=== PATIENT | female | born 1970 | race Two or more races ===

== ENCOUNTER 2018-06-18 16:15 | Inpatient (IN) | payer MEDICAID ==
[~2018-06-18] VITALS: Ht 157.5 cm; Wt 70.3 kg
[2018-06-18 16:30] VITALS: BP 126/66
[2018-06-18] MEDS ORDERED: Isovue-300 100ml vial INJ PRN (17:00)
[2018-06-18] MEDS ORDERED: Morphine Sulfate 4mg/ml Inj (IV USE ONLY) IVP ONE (17:00)
[2018-06-18 18:41] LABS: HEMATOCRIT 30.2 % (37.0-47.0); HEMOGLOBIN 9.5 G/DL (12.0-16.0); MEAN CORPUSCULAR VOLUME 95 FL (80-99); PLATELET COUNT 237 K/UL (150-450); RED BLOOD COUNT 3.19 M/UL (4.20-5.40); RED CELL DISTRIBUTION WIDTH 18.2 % (11.6-14.8)
[2018-06-18 18:42] LABS: WHITE BLOOD COUNT 22.7 K/UL (4.8-10.8)
[2018-06-18 19:00] LABS: ANION GAP 6 mmol/L (5-15); BLOOD UREA NITROGEN 34 mg/dL (7-18); CALCIUM 8.2 MG/DL (8.5-10.1); CARBON DIOXIDE 31 MMOL/L (21-32); CHLORIDE 95 MMOL/L (98-107); CREATININE 4.3 MG/DL (0.55-1.30); POTASSIUM 4.1 MMOL/L (3.5-5.1); SODIUM 132 MMOL/L (136-145)
[2018-06-18 19:04] LABS: ALANINE AMINOTRANSFERASE 12 U/L (12-78); ALBUMIN 1.9 G/DL (3.4-5.0); ALBUMIN/GLOBULIN RATIO 0.3 (1.0-2.7); ALKALINE PHOSPHATASE 104 U/L (46-116); ASPARTATE AMINO TRANSFERASE 15 U/L (15-37); BILIRUBIN,TOTAL 0.4 MG/DL (0.2-1.0)
[2018-06-18] MEDS ORDERED: Piperacillin/Tazobactam 3.375 GM in NS 110 ML IVPB ONE (21:15)
--- NOTE | 2018-06-18 21:56 | Emergency Room Report ---
History of Present Illness General Chief Complaint: Abdominal Pain Source: Patient Present Illness HPI 57-year-old female presents to ED for evaluation. Patient brought in by EMS. Complaining of abdominal pain for last 2 days. Also complaining of diarrhea. Pain is sharp, 10 out of 10, nonradiating. History of end-stage renal disease on dialysis. Gets dialysis Friday. Also has a G-tube. Denies fevers or chills. States his chest pain or shortness of breath. Daughter at bedside states that patient was discharged [address] [facility]. States that patient was not feeling well upon discharge. No other aggravating relieving factors. Denies any other associated symptoms Allergies: Coded Allergies: No Known Allergies (Unverified , 06/18/18) Patient History Past Medical History: renal disease, dialysis Past Surgical History: other - Gtube Pertinent Family History: none Social History: Denies: smoking, alcohol use, drug use Last Menstrual Period: na Now: No Immunizations: UTD Reviewed Nursing Documentation: PMH: Agreed; PSxH: Agreed Review of Systems All Other Systems: negative except mentioned in HPI Physical Exam Vital Signs Date Time Temp Pulse Resp B/P (MAP) Pulse Ox O2 Delivery O2 Flow Rate FiO2 06/18/18 16:11 98.2 82 18 126/66 98 Room Air Sp02 EP Interpretation: reviewed, normal General Appearance: no apparent distress, alert, GCS 15, non-toxic Head: normocephalic, atraumatic Eyes: bilateral eye normal inspection, bilateral eye PERRL ENT: hearing grossly normal, normal pharynx, no angioedema, normal voice Neck: full range of motion, supple/symm/no masses Respiratory: chest non-tender, lungs clear, normal breath sounds, speaking full sentences Cardiovascular #1: regular rate, rhythm, no edema Cardiovascular #2: 2+ carotid (R), 2+ carotid (L), 2+ radial (R), 2+ radial (L) , 2+ dorsalis pedis (R), 2+ dorsalis pedis (L) Gastrointestinal: normal bowel sounds, soft, non-distended, no guarding, no rebound, tenderness, other - Gtube Rectal: deferred Genitourinary: normal inspection, no CVA tenderness Musculoskeletal: back normal, gait/station normal, normal range of motion, non- tender Neurologic: alert, oriented x3, responsive, motor strength/tone normal, sensory intact, speech normal Psychiatric: judgement/insight normal, memory normal, mood/affect normal, no suicidal/homicidal ideation Reflexes: 3+ bicep (R), 3+ bicep (L), 3+ tricep (R), 3+ tricep (L), 3+ knee (R) , 3+ knee (L) Skin: normal color, no rash, warm/dry, well hydrated Lymphatic: no adenopathy Medical Decision Making Diagnostic Impression: Primary Impression: Colitis Additional Impression: ESRD needing dialysis ER Course Hospital Course 57 yo F presents to ED c/o abd pain, weakness, diarrhea Clinical course Differentialcolitis, gastroenteritis, dehydration She placed a stretcher. After initial history and physical I ordered labs, pain meds, CT Labs - marked leukocytosis noted, Hb/Hct stable. BUN/Cr elevated, K ok CT A/P - colitis Patient remains weak; recent hospitalization notes white cell count of 16,000. 22,000 here. Antibiotics given Case discussed with Dr. Canas and he agreed to accept the patient to his service for further care and support I feel this is a highly complex case requiring extensive working including EKG/ Rhythm strip, Xray/CT/US, Blood/urine lab work, repeat exams while in ED, and administration of strong opiates/narcotics for pain control, admission to hospital or close patient follow up. Diagnosis - colitis, ESRD need dialysis Patient admitted to hospital in serious condition Labs Test 06/18/18 18:05 White Blood Count 22.7 K/UL (4.8-10.8) Red Blood Count 3.19 M/UL (4.20-5.40) Hemoglobin 9.5 G/DL (12.0-16.0) Hematocrit 30.2 % (37.0-47.0) Mean Corpuscular Volume 95 FL (80-99) Mean Corpuscular Hemoglobin 29.7 PG (27.0-31.0) Mean Corpuscular Hemoglobin Concent 31.3 G/DL (32.0-36.0) Red Cell Distribution Width 18.2 % (11.6-14.8) Platelet Count 237 K/UL (150-450) Mean Platelet Volume 7.4 FL (6.5-10.1) Neutrophils (%) (Auto) % (45.0-75.0) Lymphocytes (%) (Auto) % (20.0-45.0) Monocytes (%) (Auto) % (1.0-10.0) Eosinophils (%) (Auto) % (0.0-3.0) Basophils (%) (Auto) % (0.0-2.0) Differential Total Cells Counted 100 Neutrophils % (Manual) 74 % (45-75) Lymphocytes % (Manual) 11 % (20-45) Monocytes % (Manual) 5 % (1-10) Eosinophils % (Manual) 2 % (0-3) Basophils % (Manual) 0 % (0-2) Band Neutrophils 8 % (0-8) Toxic Granulation 1+ Platelet Estimate Adequate Platelet Morphology Normal Polychromasia 1+ Anisocytosis 2+ Macrocytosis 1+ Sodium Level 132 MMOL/L (136-145) Potassium Level 4.1 MMOL/L (3.5-5.1) Chloride Level 95 MMOL/L (98-107) Carbon Dioxide Level 31 MMOL/L (21-32) Anion Gap 6 mmol/L (5-15) Blood Urea Nitrogen 34 mg/dL (7-18) Creatinine 4.3 MG/DL (0.55-1.30) Estimat Glomerular Filtration Rate 10.5 mL/min (>60) Glucose Level 110 MG/DL (74-106) Calcium Level 8.2 MG/DL (8.5-10.1) Total Bilirubin 0.4 MG/DL (0.2-1.0) Aspartate Amino Transf (AST/SGOT) 15 U/L (15-37) Alanine Aminotransferase (ALT/SGPT) 12 U/L (12-78) Alkaline Phosphatase 104 U/L (46-116) Total Protein 8.4 G/DL (6.4-8.2) Albumin 1.9 G/DL (3.4-5.0) Globulin 6.5 g/dL Albumin/Globulin Ratio 0.3 (1.0-2.7) Lipase 198 U/L (73-393) CT/MRI/US Diagnostic Results CT/MRI/US Diagnostic Results : Imaging Test Ordered: CT A/P Impression Diffuse colonic thickening is compatible with nonspecific colitis. Trace ascites. No free air or loculated fluid collection. Prominent appendix measuring 8 mm. No significant periappendiceal inflammatory change. Indeterminate 5.5 cm left pelvic mass is favored to be adnexal. Pelvic ultrasound may be considered for further characterization, as clinically indicated. Atherosclerosis of the abdominal aorta. No abdominal aortic aneurysm. Subcentimeter focus of hypoattenuation in the right kidney is too small to characterize. Percutaneous gastrostomy tube. Trace right pleural effusion. Bilateral atelectasis. Last Vital Signs Date Time Temp Pulse Resp B/P (MAP) Pulse Ox O2 Delivery O2 Flow Rate FiO2 06/18/18 16:30 98.2 82 18 126/66 98 Room Air Status: improved Disposition: ADMITTED INPATIENT Condition: Serious Referrals: NOT CHOSEN IPA/,REFERRING (PCP) Julio Locke MD Jun 18, 2018 21:56
[2018-06-18] MEDS ORDERED: Miralax 17gm pkt ORAL PRN (22:00)
[2018-06-18] MEDS ORDERED: Albuterol/Ipratropium 3ml neb HHN PRN (22:00)
[2018-06-18] MEDS ORDERED: NORVASC10 MG ORAL (22:24)
[2018-06-18] MEDS ORDERED: FAMOTIDINE20 MG ORAL (22:24)
[2018-06-18] MEDS ORDERED: COREG12.5 MG ORAL (22:24)
[2018-06-18] MEDS ORDERED: MULTIVITAMINS1 EAC8 ORAL (22:27)
[2018-06-18] MEDS ORDERED: VITAMIN D1000 UNI1 ORAL (22:27)
[2018-06-18] MEDS ORDERED: B COMPLEX WITH1 EACH ORAL (22:27)
[2018-06-18 22:30] VITALS: BP 113/58
[2018-06-19 04:00] VITALS: BP 121/62
[2018-06-19 07:28] LABS: BASOPHILS % (AUTO) 0.4 % (0.0-2.0); EOSINOPHILS % (AUTO) 2.4 % (0.0-3.0); HEMATOCRIT 31.7 % (37.0-47.0); HEMOGLOBIN 9.8 G/DL (12.0-16.0); MEAN CORPUSCULAR VOLUME 94 FL (80-99); MONOCYTES % (AUTO) 5.8 % (1.0-10.0); NEUTROPHILS % (AUTO) 75.4 % (45.0-75.0); PLATELET COUNT 265 K/UL (150-450); RED BLOOD COUNT 3.37 M/UL (4.20-5.40); WHITE BLOOD COUNT 16.3 K/UL (4.8-10.8)
[2018-06-19 07:42] LABS: ALBUMIN 1.9 G/DL (3.4-5.0); ANION GAP 6 mmol/L (5-15); BLOOD UREA NITROGEN 40 mg/dL (7-18); CALCIUM 8.4 MG/DL (8.5-10.1); CARBON DIOXIDE 31 MMOL/L (21-32); CHLORIDE 93 MMOL/L (98-107); CREATININE 4.8 MG/DL (0.55-1.30); POTASSIUM 4.3 MMOL/L (3.5-5.1); SODIUM 130 MMOL/L (136-145)
[2018-06-19 08:00] VITALS: BP 116/70
[2018-06-19] MEDS: Heparin 5000 units/ml inj SUBQ SCH ×2 (09:03→20:43)
--- NOTE | 2018-06-19 11:30 | Consultation ---
Consult Note Consult Note asked to eval for dialysis management 57-year-old female presents to ED for evaluation. Patient brought in by EMS. Complaining of abdominal pain for last 2 days. Also complaining of diarrhea. Pain is sharp, 10 out of 10, nonradiating. History of end-stage renal disease on dialysis. Gets dialysis Friday. Also has a G-tube. Denies fevers or chills. States his chest pain or shortness of breath. Daughter at bedside states that patient was discharged 2 days ago from [facility]. States that patient was not feeling well upon discharge. No other aggravating relieving factors. 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 Anemia Leukocytosis ? Cath infection Plan: NPO IV fluid ST eval UA and c/s HD as needed One gram Anish Chaudhary MD Jun 19, 2018 11:30
[2018-06-19 11:47] LABS: PHOSPHORUS 3.1 MG/DL (2.5-4.9)
[2018-06-19 12:00] VITALS: BP 111/63
[2018-06-19] MEDS ORDERED: Vancomycin 1 GM in D5W 275 ML IVPB SCH (12:00)
[2018-06-19] MEDS: D5NS 1,000 ML IV SCH (12:15)
--- NOTE | 2018-06-19 14:29 | Consultation ---
History of Present Illness General Date patient seen: Jun 19, 2018 Chief Complaint: Abdominal Pain Present Illness HPI 57-year-old female with ESRF on HD MWF, with Gtube feeding presented to ED for evaluation of abdominal pain for last 2 days. Also complaining of diarrhea. Denies fevers or chills. States his chest pain or shortness of breath. Daughter at bedside states that patient was discharged 2 days ago from [facility]. She was found to be septic and admitted for further work up. Allergies: Coded Allergies: No Known Allergies (Unverified , 06/18/18) Medication History Scheduled Amlodipine Besylate (Norvasc), 10 MG ORAL DAILY, (Reported) Carvedilol (Coreg), 12.5 MG ORAL EVERY 12 HOURS, (Reported) Cholecalciferol (Vitamin D3)* (Vitamin D*), 2,000 UNITS ORAL DAILY, (Reported) Famotidine (Famotidine), 20 MG ORAL TWICE A DAY, (Reported) Multivitamin With Minerals (Multivitamins With Minerals*), 1 TAB ORAL DAILY, ( Reported) Vitamin B Complex & Vit C No.3 (B Complex With Vitamin C), 1 TAB ORAL DAILY, ( Reported) Patient History Healthcare decision maker Resuscitation status Full Code Advanced Directive on File Past Medical/Surgical History Past Medical/Surgical History: (1) ESRD needing dialysis Review of Systems All Other Systems: negative except mentioned in HPI Physical Exam General Appearance: WD/WN Lines, tubes and drains: peripheral HEENT: normocephalic, atraumatic Neck: non-tender, normal alignment, limited range of motion Respiratory/Chest: chest wall non-tender, lungs clear Breasts: no masses Cardiovascular/Chest: normal peripheral pulses Abdomen: normal bowel sounds, non tender Last 24 Hour Vital Signs Date Time Temp Pulse Resp B/P (MAP) Pulse Ox O2 Delivery O2 Flow Rate FiO2 06/19/18 12:00 97.9 61 17 111/63 (79) 98 06/19/18 09:33 Room Air 06/19/18 09:29 97.8 06/19/18 08:16 Room Air 06/19/18 08:00 98.0 72 18 116/70 (85) 98 06/19/18 04:00 97.8 77 18 121/62 (81) 97 06/18/18 22:30 97.9 74 18 113/58 (76) 96 06/18/18 22:11 98.2 18 126/66 98 Room Air 06/18/18 16:30 98.2 82 18 126/66 98 Room Air 06/18/18 16:30 82 18 Room Air 06/18/18 16:11 98.2 82 18 126/66 98 Room Air Intake and Output 06/18/18 06/19/18 18:59 06:59 Intake Total 0 ml 240 ml Balance 0 ml 240 ml Intake Oral 0 ml 240 ml # Voids 2 # Bowel Movements 1 Laboratory Tests Test 06/18/18 18:05 06/18/18 22:48 06/19/18 06:50 06/19/18 06:58 White Blood Count 22.7 K/UL (4.8-10.8) *H 16.3 K/UL (4.8-10.8) H Red Blood Count 3.19 M/UL (4.20-5.40) L 3.37 M/UL (4.20-5.40) L Hemoglobin 9.5 G/DL (12.0-16.0) L 9.8 G/DL (12.0-16.0) L Hematocrit 30.2 % (37.0-47.0) L 31.7 % (37.0-47.0) L Mean Corpuscular Volume 95 FL (80-99) 94 FL (80-99) Mean Corpuscular Hemoglobin 29.7 PG (27.0-31.0) 29.0 PG (27.0-31.0) Mean Corpuscular Hemoglobin Concent 31.3 G/DL (32.0-36.0) L 30.8 G/DL (32.0-36.0) L Red Cell Distribution Width 18.2 % (11.6-14.8) H 19.0 % (11.6-14.8) H Platelet Count 237 K/UL (150-450) 265 K/UL (150-450) Mean Platelet Volume 7.4 FL (6.5-10.1) 7.7 FL (6.5-10.1) Neutrophils (%) (Auto) % (45.0-75.0) 75.4 % (45.0-75.0) H Lymphocytes (%) (Auto) % (20.0-45.0) 16.0 % (20.0-45.0) L Monocytes (%) (Auto) % (1.0-10.0) 5.8 % (1.0-10.0) Eosinophils (%) (Auto) % (0.0-3.0) 2.4 % (0.0-3.0) Basophils (%) (Auto) % (0.0-2.0) 0.4 % (0.0-2.0) Differential Total Cells Counted 100 Neutrophils % (Manual) 74 % (45-75) Lymphocytes % (Manual) 11 % (20-45) L Monocytes % (Manual) 5 % (1-10) Eosinophils % (Manual) 2 % (0-3) Basophils % (Manual) 0 % (0-2) Band Neutrophils 8 % (0-8) Toxic Granulation 1+ Platelet Estimate Adequate Platelet Morphology Normal Polychromasia 1+ Anisocytosis 2+ Macrocytosis 1+ Sodium Level 132 MMOL/L (136-145) L 130 MMOL/L (136-145) L Potassium Level 4.1 MMOL/L (3.5-5.1) 4.3 MMOL/L (3.5-5.1) Chloride Level 95 MMOL/L (98-107) L 93 MMOL/L (98-107) L Carbon Dioxide Level 31 MMOL/L (21-32) 31 MMOL/L (21-32) Anion Gap 6 mmol/L (5-15) 6 mmol/L (5-15) Blood Urea Nitrogen 34 mg/dL (7-18) H 40 mg/dL (7-18) H Creatinine 4.3 MG/DL (0.55-1.30) H 4.8 MG/DL (0.55-1.30) H Estimat Glomerular Filtration Rate 10.5 mL/min (>60) 9.3 mL/min (>60) Glucose Level 110 MG/DL (74-106) H 75 MG/DL (74-106) Calcium Level 8.2 MG/DL (8.5-10.1) L 8.4 MG/DL (8.5-10.1) L Total Bilirubin 0.4 MG/DL (0.2-1.0) Aspartate Amino Transf (AST/SGOT) 15 U/L (15-37) Alanine Aminotransferase (ALT/SGPT) 12 U/L (12-78) Alkaline Phosphatase 104 U/L (46-116) Total Protein 8.4 G/DL (6.4-8.2) H Albumin 1.9 G/DL (3.4-5.0) L 1.9 G/DL (3.4-5.0) L Globulin 6.5 g/dL Albumin/Globulin Ratio 0.3 (1.0-2.7) L Lipase 198 U/L (73-393) Troponin I 0.000 ng/mL (0.000-0.056) 0.000 ng/mL (0.000-0.056) Hemoglobin A1c 6.3 % (4.3-6.0) H Phosphorus Level 3.1 MG/DL (2.5-4.9) 3.0 MG/DL (2.5-4.9) Magnesium Level 2.0 MG/DL (1.8-2.4) Thyroid Stimulating Hormone (TSH) 2.039 uiU/mL (0.358-3.740) Test 06/19/18 11:24 C-Reactive Protein, Quantitative 32.5 mg/dL (0.00-0.90) H Height (Feet): 5 Height (Inches): 2.00 Weight (Pounds): 155 Medications Current Medications Medications (Trade) Dose Ordered Sig/Victoriano Route PRN Reason Start Time Stop Time Status Last Admin Dose Admin Acetaminophen (Tylenol) 650 mg Q4H PRN ORAL Fever 06/18/18 22:00 07/18/18 21:59 06/19/18 08:59 Albuterol/ Ipratropium (Albuterol/ Ipratropium) 3 ml EVERY 4 HOURS PRN HHN Shortness of Breath 06/18/18 22:00 06/23/18 21:59 Dextrose (Dextrose 50%) 25 ml Q30M PRN IV Hypoglycemia 06/18/18 22:00 07/18/18 21:59 Dextrose (Dextrose 50%) 50 ml Q30M PRN IV Hypoglycemia 06/18/18 22:00 07/18/18 21:59 Dextrose/Sodium Chloride 1,000 ml @ 50 mls/hr Q20H IV 06/19/18 11:30 07/19/18 11:29 06/19/18 12:15 Heparin Sodium (Porcine) (Heparin 5000 units/ml) 5,000 units EVERY 12 HOURS SUBQ 06/19/18 09:00 07/19/18 08:59 06/19/18 09:03 Ondansetron HCl (Zofran) 4 mg Q6H PRN IVP Nausea & Vomiting 06/18/18 22:00 07/18/18 21:59 Polyethylene Glycol (Miralax) 17 gm DAILYPRN PRN ORAL Constipation 06/18/18 22:00 07/18/18 21:59 Temazepam (Restoril) 15 mg HSPRN PRN ORAL Insomnia 06/18/18 22:00 06/25/18 21:59 Assessment/Plan Problem List: (1) Colitis ICD Codes: K52.9 - Noninfective gastroenteritis and colitis, unspecified; Z99.2 - Dependence on renal dialysis SNOMED: 06290944 (2) ESRD needing dialysis ICD Codes: N18.6 - End stage renal disease; Z99.2 - Dependence on renal dialysis SNOMED: 15234626 Assessment/Plan iv abx iv fluids npo nephrology for HD ID evaluation Anupama Tanner MD Jun 19, 2018 14:29
--- NOTE | 2018-06-19 15:31 | Diagnostic Imaging Report ---
Clinical Indication: Abdominal pain with vomiting Technique: No oral contrast utilized, per emergency room physician request IV administration nonionic contrast. Venous phase spiral acquisition obtained through the abdomen and pelvis. Multiplanar reconstructions were generated. Total dose length product 670.42 mGycm. CTDIvol(s) 14.12 mGy. Dose reduction achieved using automated exposure control Comparison: none Findings: There is marked wall thickening of essentially the entire colon, most strikingly involving the ascending colon. There is infiltration of the surrounding pericolonic fat. There is mild distention of the terminal ileum but no definite terminal ileal wall thickening. The appendix is mildly dilated, demonstrates internal fluid and rim enhancement. No small bowel distention. No free or loculated intraperitoneal gas or fluid is evident. There is a gastrostomy tube in the gastric lumen, in good position. The gastric wall demonstrates equivocal wall thickening, probably an artifact of under distention. There is some infiltration of the perigastric fat, however. There is a small amount of free intraperitoneal fluid present. The liver, gallbladder, bile ducts, pancreas, spleen, adrenals are unremarkable. The right kidney demonstrates an upper pole cyst as well as multiple subcentimeter low-attenuation lesions which are too small to characterize. Left kidney also demonstrates a subcentimeter low attenuation lesion coming off of the lower pole. No renal or ureteral calculi or hydronephrosis. There is a solid 5 cm left adnexal mass demonstrated.. There is a small right pleural effusion. Some atelectatic changes and possible congestion are noted at the lung bases. The heart is enlarged. What may be the tip of a central venous catheter is seen in the right atrium. The bones demonstrate degenerative spondylosis changes. Impression: Extensive diffuse colonic wall thickening and infiltration of the pericolonic fat is consistent with colitis, nonspecific as regards etiology Trace ascites fluid, possibly related to the above Dilatation of the appendix, probably related to the above, but the possibility of appendicitis should also be considered. Solid 5 cm left adnexal mass. Recommend ultrasound for further evaluation Gastrostomy Right pleural effusion Bilateral basilar pulmonary atelectatic changes and possible consolidation Right renal cysts. Bilateral subcentimeter low-attenuation renal lesions, too small to characterize, most likely benign simple cysts. Cardiomegaly Possible central venous catheter This agrees with the preliminary interpretation provided overnight by [facility] teleradiology service. The CT scanner at [facility] is accredited by the [employer] and the scans are performed using protocols designed to limit radiation exposure to as low as reasonably achievable to attain images of sufficient resolution adequate for diagnostic evaluation.
[2018-06-19] MEDS: Piperacillin/Tazobactam 2.25 GM in D5W 55 ML IVPB SCH ×2 (15:57→22:44)
--- NOTE | 2018-06-19 15:59 | Consultation ---
History of Present Illness General Date patient seen: Jun 19, 2018 Chief Complaint: Abdominal Pain Present Illness HPI 57 y/o F with hx of ESRF on HD MWF via R chest permacath, dysphagia s/p GT presented to ED on 06/18 with 2 days of abd pain and diarrhea. Pain is described as sharp, 10/10 intensity, non radiating. She was found to have leukocytosis Denied f/c, CP, SOB upon admission. Of note, patient was discharged from [facility] 2 days prior to admission. Allergies: Coded Allergies: No Known Allergies (Unverified , 06/18/18) Medication History Scheduled Amlodipine Besylate (Norvasc), 10 MG ORAL DAILY, (Reported) Carvedilol (Coreg), 12.5 MG ORAL EVERY 12 HOURS, (Reported) Cholecalciferol (Vitamin D3)* (Vitamin D*), 2,000 UNITS ORAL DAILY, (Reported) Famotidine (Famotidine), 20 MG ORAL TWICE A DAY, (Reported) Multivitamin With Minerals (Multivitamins With Minerals*), 1 TAB ORAL DAILY, ( Reported) Vitamin B Complex & Vit C No.3 (B Complex With Vitamin C), 1 TAB ORAL DAILY, ( Reported) Patient History Healthcare decision maker Resuscitation status Full Code Advanced Directive on File Patient History Narrative Pmhx: as above Shx: Denies: smoking, alcohol use, drug use Fhx non contributory Review of Systems All Other Systems: negative except mentioned in HPI Physical Exam Physical Exam Narrative ER ROS - General Review of Systems General Appearance: WD/WN Lines, tubes and drains: peripheral HEENT: normocephalic, atraumatic Neck: non-tender, normal alignment, limited range of motion Respiratory/Chest: chest wall non-tender, lungs clear Breasts: no masses Cardiovascular/Chest: normal peripheral pulses Abdomen: normal bowel sounds, non tender Last 24 Hour Vital Signs Date Time Temp Pulse Resp B/P (MAP) Pulse Ox O2 Delivery O2 Flow Rate FiO2 06/19/18 12:00 97.9 61 17 111/63 (79) 98 06/19/18 09:33 Room Air 06/19/18 09:29 97.8 06/19/18 08:16 Room Air 06/19/18 08:00 98.0 72 18 116/70 (85) 98 3/22/19 04:00 97.8 77 18 121/62 (81) 97 06/18/18 22:30 97.9 74 18 113/58 (76) 96 06/18/18 22:11 98.2 18 126/66 98 Room Air 06/18/18 16:30 98.2 82 18 126/66 98 Room Air 06/18/18 16:30 82 18 Room Air 06/18/18 16:11 98.2 82 18 126/66 98 Room Air Intake and Output 06/18/18 06/19/18 19:00 07:00 Intake Total 0 ml 240 ml Balance 0 ml 240 ml Intake Oral 0 ml 240 ml # Voids 2 # Bowel Movements 1 Laboratory Tests Test 06/18/18 18:05 06/18/18 22:48 06/19/18 06:50 06/19/18 06:58 White Blood Count 22.7 K/UL (4.8-10.8) *H 16.3 K/UL (4.8-10.8) H Red Blood Count 3.19 M/UL (4.20-5.40) L 3.37 M/UL (4.20-5.40) L Hemoglobin 9.5 G/DL (12.0-16.0) L 9.8 G/DL (12.0-16.0) L Hematocrit 30.2 % (37.0-47.0) L 31.7 % (37.0-47.0) L Mean Corpuscular Volume 95 FL (80-99) 94 FL (80-99) Mean Corpuscular Hemoglobin 29.7 PG (27.0-31.0) 29.0 PG (27.0-31.0) Mean Corpuscular Hemoglobin Concent 31.3 G/DL (32.0-36.0) L 30.8 G/DL (32.0-36.0) L Red Cell Distribution Width 18.2 % (11.6-14.8) H 19.0 % (11.6-14.8) H Platelet Count 237 K/UL (150-450) 265 K/UL (150-450) Mean Platelet Volume 7.4 FL (6.5-10.1) 7.7 FL (6.5-10.1) Neutrophils (%) (Auto) % (45.0-75.0) 75.4 % (45.0-75.0) H Lymphocytes (%) (Auto) % (20.0-45.0) 16.0 % (20.0-45.0) L Monocytes (%) (Auto) % (1.0-10.0) 5.8 % (1.0-10.0) Eosinophils (%) (Auto) % (0.0-3.0) 2.4 % (0.0-3.0) Basophils (%) (Auto) % (0.0-2.0) 0.4 % (0.0-2.0) Differential Total Cells Counted 100 Neutrophils % (Manual) 74 % (45-75) Lymphocytes % (Manual) 11 % (20-45) L Monocytes % (Manual) 5 % (1-10) Eosinophils % (Manual) 2 % (0-3) Basophils % (Manual) 0 % (0-2) Band Neutrophils 8 % (0-8) Toxic Granulation 1+ Platelet Estimate Adequate Platelet Morphology Normal Polychromasia 1+ Anisocytosis 2+ Macrocytosis 1+ Sodium Level 132 MMOL/L (136-145) L 130 MMOL/L (136-145) L Potassium Level 4.1 MMOL/L (3.5-5.1) 4.3 MMOL/L (3.5-5.1) Chloride Level 95 MMOL/L (98-107) L 93 MMOL/L (98-107) L Carbon Dioxide Level 31 MMOL/L (21-32) 31 MMOL/L (21-32) Anion Gap 6 mmol/L (5-15) 6 mmol/L (5-15) Blood Urea Nitrogen 34 mg/dL (7-18) H 40 mg/dL (7-18) H Creatinine 4.3 MG/DL (0.55-1.30) H 4.8 MG/DL (0.55-1.30) H Estimat Glomerular Filtration Rate 10.5 mL/min (>60) 9.3 mL/min (>60) Glucose Level 110 MG/DL (74-106) H 75 MG/DL (74-106) Calcium Level 8.2 MG/DL (8.5-10.1) L 8.4 MG/DL (8.5-10.1) L Total Bilirubin 0.4 MG/DL (0.2-1.0) Aspartate Amino Transf (AST/SGOT) 15 U/L (15-37) Alanine Aminotransferase (ALT/SGPT) 12 U/L (12-78) Alkaline Phosphatase 104 U/L (46-116) Total Protein 8.4 G/DL (6.4-8.2) H Albumin 1.9 G/DL (3.4-5.0) L 1.9 G/DL (3.4-5.0) L Globulin 6.5 g/dL Albumin/Globulin Ratio 0.3 (1.0-2.7) L Lipase 198 U/L (73-393) Troponin I 0.000 ng/mL (0.000-0.056) 0.000 ng/mL (0.000-0.056) Hemoglobin A1c 6.3 % (4.3-6.0) H Phosphorus Level 3.1 MG/DL (2.5-4.9) 3.0 MG/DL (2.5-4.9) Magnesium Level 2.0 MG/DL (1.8-2.4) Thyroid Stimulating Hormone (TSH) 2.039 uiU/mL (0.358-3.740) Test 06/19/18 11:24 C-Reactive Protein, Quantitative 32.5 mg/dL (0.00-0.90) H Height (Feet): 5 Height (Inches): 2.00 Weight (Pounds): 155 Medications Current Medications Medications (Trade) Dose Ordered Sig/Victoriano Route PRN Reason Start Time Stop Time Status Last Admin Dose Admin Acetaminophen (Tylenol) 650 mg Q4H PRN ORAL Fever 06/18/18 22:00 07/18/18 21:59 06/19/18 08:59 Albuterol/ Ipratropium (Albuterol/ Ipratropium) 3 ml EVERY 4 HOURS PRN HHN Shortness of Breath 06/18/18 22:00 06/23/18 21:59 Dextrose (Dextrose 50%) 25 ml Q30M PRN IV Hypoglycemia 06/18/18 22:00 07/18/18 21:59 Dextrose (Dextrose 50%) 50 ml Q30M PRN IV Hypoglycemia 06/18/18 22:00 07/18/18 21:59 Dextrose/Sodium Chloride 1,000 ml @ 50 mls/hr Q20H IV 06/19/18 11:30 07/19/18 11:29 06/19/18 12:15 Heparin Sodium (Porcine) (Heparin 5000 units/ml) 5,000 units EVERY 12 HOURS SUBQ 06/19/18 09:00 07/19/18 08:59 06/19/18 09:03 Ondansetron HCl (Zofran) 4 mg Q6H PRN IVP Nausea & Vomiting 06/18/18 22:00 07/18/18 21:59 Piperacillin Sod/ Tazobactam Sod 2.25 gm/Dextrose 55 ml @ 110 mls/hr Q8HR IVPB 06/19/18 15:00 06/24/18 14:59 Polyethylene Glycol (Miralax) 17 gm DAILYPRN PRN ORAL Constipation 06/18/18 22:00 07/18/18 21:59 Temazepam (Restoril) 15 mg HSPRN PRN ORAL Insomnia 06/18/18 22:00 06/25/18 21:59 Assessment/Plan Assessment/Plan Abx: IV Vancomycin 06/19 Zosyn 06/18- Assessment: Colitis- r/o Cdiff given recent hospital admission -CT abd/p: Extensive diffuse colonic wall thickening and infiltration of the pericolonic fat is consistent with colitis, nonspecific as regards etiology. Trace ascites fluid, possibly related to the above. Dilatation of the appendix, probably related to the above, but the possibility of appendicitis should also be considered. Solid 5 cm left adnexal mass. Recommend ultrasound for further evaluation. Right pleural effusion. Bilateral basilar pulmonary atelectatic changes and possible consolidation Afebrile Leukocytosis, improving ESRF on HD MWF via R chest permacath dysphagia s/p GT Plan: -Continue empiric Zosyn #2 for now -Start empiric PO Vancomycin pending cdiff -if Cdiff +, d/c Zosyn -f.u cx -Monitor CBC/CMP, temperatures -f/u cdiff, stool cx -GI f/u -aspiration precautions -HD cath care Thank you for this consultation. Will continue to follow along with you. Мария Dougherty M.D. Jun 19, 2018 15:59
[2018-06-19 16:00] VITALS: BP 112/75
--- NOTE | 2018-06-19 16:10 | History & Physical ---
History and Physical History & Physicial Benji Canas MD Jun 19, 2018 16:10
[2018-06-19 16:37] LABS: APPEARANCE,URINE SLIGHTLY CLOUDY; BILIRUBIN, URINE 2+ (NEGATIVE); COLOR,URINE AMBER; GLUCOSE, URINE (UA) NEGATIVE (NEGATIVE); KETONES,URINE NEGATIVE (NEGATIVE); LEUKOCYTE ESTERASE ,URINE 2+ (NEGATIVE); NITRITE,URINE NEGATIVE (NEGATIVE); PH,URINE 5 (4.5-8.0); PROTEIN,URINE 3+ (NEGATIVE); UROBILINOGEN,URINE NORMAL MG/DL (0.0-1.0)
[2018-06-19] MEDS: Vancomycin oral 125mg/2.5ml ORAL SCH ×2 (17:30→20:42)
[2018-06-19 20:00] VITALS: BP 125/87
--- NOTE | 2018-06-19 21:45 | Consultation ---
DATE OF CONSULTATION: 06/19/2018 CONSULTING PHYSICIAN: Theron Casiano M.D. REFERRING PHYSICIAN: Benji Canas M.D. CHIEF COMPLAINT: Diarrhea, anemia, abdominal pain. HISTORY OF PRESENT ILLNESS: This is a 57-year-old female, who apparently recently was discharged from [facility]. Apparently, she had a long stay over there. She is not exactly sure what was the reason for staying, but basically she was admitted with 2 days of abdominal pain and diarrhea. CT in the ER, I do not have the final report of the CT scan, but according to the ER note states that the patient had evidence of colitis. PAST MEDICAL HISTORY: 1. End-stage renal disease, on hemodialysis. 2. History of dysphagia, requiring G-tube placement. 3. History of . ALLERGIES: No known drug allergies. MEDICATIONS: Please see medication reconciliation list. FAMILY HISTORY: Noncontributory. SOCIAL HISTORY: The patient denies any tobacco, alcohol, or illicit drug abuse. PAST SURGICAL HISTORY: The patient had a large many years ago. PHYSICAL EXAMINATION: VITAL SIGNS: Temperature 97.9, pulse 61, respirations 17, blood pressure is 101/63. HEENT: Normocephalic and atraumatic. No scleral icterus. NECK: Supple. No obvious evidence of lymphadenopathy. CARDIOVASCULAR: Regular rhythm. Plus S1 and S2. No obvious murmur. LUNGS: Clear to auscultation bilaterally. ABDOMEN: Positive bowel sounds. Soft. There is a scar below the umbilicus from prior . There is tenderness to palpation in the lower quadrant. No rebound. No guarding. No peritoneal sign. EXTREMITIES: No cyanosis, no clubbing, no edema. LABORATORY DATA: On admission, white count was 22. Hemoglobin 9.5, platelet count was 237,000. BUN is 40, creatinine 4.8. ASSESSMENT: This is a 57-year-old female with GI problem list of: 1. Anemia. 2. Abdominal pain. 3. History of dysphagia with a G-tube. 4. Diarrhea. PLAN: 1. In terms of the anemia, it is most probably secondary to chronic end-stage renal disease. We will order iron panel, stool for OB. Hold the GI procedure at this time. 2. In terms of dysphagia, the patient apparently has been eating. She states she does not need the G-tube. She has not used the G-tube. The G-tube apparently was placed 3 months ago as she was on TPN at that time according to her, so basically she wanted the G-tube removed. I offered to take it out today, but she states no, she wants to wait until tomorrow and talk to her daughter if really having it removed, so we are going to follow up on that. 3. In terms of diarrhea, given recent hospital stay and most probably recent antibiotics, we need to rule out C. difficile. We are going to order stool for culture, stool for C. difficile. Monitor labs. Consider colonoscopy if needed. I want to thank Dr. Benji Canas for this kind referral. Theron Casiano M.D. DR: Melvi JOB#: [id number] CC: Benji Canas M.D.; Fax#: [phone]
--- NOTE | 2018-06-19 22:30 | History and Physical Report ---
DATE OF ADMISSION: 06/18/2018 CHIEF COMPLAINT: Abdominal pain x2 days. HISTORY OF PRESENT ILLNESS: This is a 57-year-old female with past medical history significant for end-stage renal disease, on hemodialysis, Friday, Friday, and Friday via right chest wall PermCath; history of dysphagia, status post PEG placement; and hypertension who is presented to the hospital complaining about abdominal pain over the past two days, progressively worsening associated with diarrhea. The patient stated the pain is 10/10 intensity, nonradiating. No fever or chills. Occasional chest pain associated with shortness of breath. The patient was recently discharged about two days ago from [facility] and abdominal pain got worsening and so decided to come to the hospital. Shortly after initial evaluation in the emergency room, the patient confirmed to have extensive diffuse colonic wall thickening with infiltrate of the pericolonic fat, it is consistent with colitis on CT scan and subsequently the patient was admitted to the hospital with colitis. PAST MEDICAL HISTORY/PAST SURGICAL HISTORY: As above, history of end-stage renal disease, on hemodialysis; hypertension; dysphagia, status post PEG; and recent history of tracheostomy. MEDICATIONS: At home, please refer to medication reconciliation. ALLERGIES: No known drug allergies. SOCIAL HISTORY: No smoking, alcohol, or drugs. FAMILY HISTORY: Noncontributory. REVIEW OF SYSTEMS: Mostly as above. Very limited secondary to the patient's status. The patient is speaking and hard to communicate; however, denies any loss of consciousness. Denies any fever or chills. Denies any fall or head trauma. PHYSICAL EXAMINATION: VITAL SIGNS: On admission, temperature 98.2, pulse of 82, respirations 18, and blood pressure 126/66. GENERAL: The patient is awake, responsive, in no acute distress. HEAD AND NECK: Pupils equal and reactive to light. Extraocular movements are intact. NECK: Supple. No JVD. Tracheostomy site was noted. Well-healed scar. CHEST: Chest wall has right-sided PermCath. No sign of infection. LUNGS: Chest has bilateral air entry. No wheezes or rhonchi. HEART: S1 and S2. Regular rhythm. No gallops. ABDOMEN: Soft. Generalized tenderness. No rebound tenderness. No fluid shift. PEG site is clean. EXTREMITIES: No cyanosis, clubbing, or edema. NEUROLOGIC: Cranial nerves II through XII grossly intact. Motor is 5/5 in all extremities. Gait was not assessed due to the patient's status. LABORATORY AND DIAGNOSTIC DATA: On admission from the ER is significant for WBC of 22.7, hemoglobin of 9.5, hematocrit 30, and platelets are 237,000. Sodium 130, potassium 4.3, chloride 93, bicarbonate 31, BUN 40, creatinine 4.8, and calcium is 9.3. First and second troponin 0.00. CRP of 32.5. Albumin is 1.9. CT scan of the abdomen and pelvis as mentioned, marked colonic thickening, extensive diffuse colonic wall thickening with infiltration of the pericolonic fat, it is consistent with colitis, nonspecific etiology. Trace ascites, fluid, possible related to the above. Dilatation of the appendix, probably related to the above. A 5 cm left adnexal mass. Recommended ultrasound for further evaluation. Gastrostomy, right pleural effusion, and bilateral basal pulmonary atelectasis. ASSESSMENT: 1. Abdominal pain, most likely secondary to an acute colitis. 2. Pelvic mass. 3. End-stage renal disease, on hemodialysis. 4. Hypertension. 5. Dysphagia, status post PEG. PLAN: Admit the patient to medical floor. We will follow up with broad-spectrum antibiotic with vancomycin and Zosyn. Follow up with Dr. Berry from Nephrology, Dr. Tanner from Pulmonary Critical Care, and Dr. Dougherty from Infectious Disease. We will resume home medication. Code status is Full Code. DVT prophylaxis, heparin subcutaneous. Benji Canas M.D. DR: DERIK JOB#: [id number] CC:
[2018-06-20] VITALS (7 sets, daily range): BP systolic 98–131; BP diastolic 51–87
[2018-06-20] MEDS: Piperacillin/Tazobactam 2.25 GM in D5W 55 ML IVPB SCH ×3 (05:54→22:10)
[2018-06-20 06:37] LABS: BASOPHILS % (AUTO) 0.4 % (0.0-2.0); EOSINOPHILS % (AUTO) 2.5 % (0.0-3.0); HEMATOCRIT 28.9 % (37.0-47.0); HEMOGLOBIN 8.9 G/DL (12.0-16.0); LYMPHOCYTES % (AUTO) 18.2 % (20.0-45.0); MEAN CORPUSCULAR VOLUME 94 FL (80-99); MONOCYTES % (AUTO) 7.1 % (1.0-10.0); NEUTROPHILS % (AUTO) 71.8 % (45.0-75.0); PLATELET COUNT 270 K/UL (150-450); RED BLOOD COUNT 3.07 M/UL (4.20-5.40); RED CELL DISTRIBUTION WIDTH 18.8 % (11.6-14.8); WHITE BLOOD COUNT 16.2 K/UL (4.8-10.8)
[2018-06-20 07:15] LABS: ALANINE AMINOTRANSFERASE 9 U/L (12-78); ALBUMIN 1.6 G/DL (3.4-5.0); ALBUMIN/GLOBULIN RATIO 0.3 (1.0-2.7); ALKALINE PHOSPHATASE 100 U/L (46-116); ANION GAP 9 mmol/L (5-15); ASPARTATE AMINO TRANSFERASE 12 U/L (15-37); BILIRUBIN,TOTAL 0.4 MG/DL (0.2-1.0); BLOOD UREA NITROGEN 45 mg/dL (7-18); CALCIUM 7.9 MG/DL (8.5-10.1); CARBON DIOXIDE 27 MMOL/L (21-32); CHLORIDE 94 MMOL/L (98-107); CREATININE 5.4 MG/DL (0.55-1.30); FERRITIN 620 NG/ML (8-388); PHOSPHORUS 2.6 MG/DL (2.5-4.9); POTASSIUM 4.2 MMOL/L (3.5-5.1); SODIUM 130 MMOL/L (136-145)
[2018-06-20 07:52] LABS: % IRON SATURATION 19 % (15-50); IRON 17 ug/dL (50-175); TOTAL IRON BINDING CAPACITY 88 ug/dL (250-450)
[2018-06-20] MEDS: Vancomycin oral 125mg/2.5ml ORAL SCH ×3 (08:33→23:35)
[2018-06-20] MEDS: Heparin 5000 units/ml inj SUBQ SCH ×2 (08:34→20:46)
[2018-06-20] MEDS: D5NS 1,000 ML IV SCH (08:35)
--- NOTE | 2018-06-20 10:13 | Infectious Diseases Prog Note ---
Assessment/Plan Assessment/Plan Assessment: Colitis- probable Cdiff given recent hospital admission , despite of negative toxin test -CT abd/p: Extensive diffuse colonic wall thickening and infiltration of the pericolonic fat is consistent with colitis, nonspecific as regards etiology. Trace ascites fluid, possibly related to the above. Dilatation of the appendix, probably related to the above, but the possibility of appendicitis should also be considered. Solid 5 cm left adnexal mass. Recommend ultrasound for further evaluation. Right pleural effusion. Bilateral basilar pulmonary atelectatic changes and possible consolidation Afebrile Leukocytosis, ESRF on HD MWF via R chest permacath dysphagia s/p GT Plan: -Continue empiric Zosyn #3/5-7 for now may Dc if stool Cx negative - cont empiric PO Vancomycin d# 05/10 -f.u cx -Monitor CBC/CMP, temperatures -f/u stool cx -GI f/u -aspiration precautions -HD cath care Subjective Allergies: Coded Allergies: No Known Allergies (Unverified , 06/18/18) Subjective diarrhea improving Afebrile no new complain Objective Vital Signs Last 24 Hour Vital Signs Date Time Temp Pulse Resp B/P (MAP) Pulse Ox O2 Delivery O2 Flow Rate FiO2 06/20/18 09:00 Room Air 06/20/18 04:00 97.6 65 20 119/78 (92) 06/20/18 00:00 98.0 65 18 122/87 (99) 06/19/18 21:00 Room Air 06/19/18 20:00 97.8 75 18 125/87 (100) 06/19/18 16:00 98.5 90 17 112/75 (87) 98 06/19/18 12:00 97.9 61 17 111/63 (79) 98 Height (Feet): 5 Height (Inches): 2.00 Weight (Pounds): 155 HEENT: mucous membranes moist Respiratory/Chest: no respiratory distress Cardiovascular: no gallop/murmur Abdomen: no organomegaly Microbiology Date/Time Source Procedure Growth Status 06/18/18 22:10 Nasal Nares MRSA Culture - Final NO METHICILLIN RESISTANT STAPH AUREUS... Complete 06/20/18 00:40 Stool Clostridium difficile Toxin Assay - Final Complete 06/19/18 16:15 Indwelling Cath Urine Culture - Preliminary NO GROWTH Resulted Laboratory Tests Test 06/19/18 11:24 06/19/18 16:15 06/20/18 00:40 06/20/18 05:35 C-Reactive Protein, Quantitative 32.5 mg/dL (0.00-0.90) H 21.6 mg/dL (0.00-0.90) H Urine Color Eloisa Urine Appearance Slightly cloudy Urine pH 5 (4.5-8.0) Urine Specific [place] 1.005 (1.005-1.035) Urine Protein 3+ (NEGATIVE) H Urine Glucose (UA) Negative (NEGATIVE) Urine Ketones Negative (NEGATIVE) Urine Blood 2+ (NEGATIVE) H Urine Nitrite Negative (NEGATIVE) Urine Bilirubin 2+ (NEGATIVE) H Urine Ictotest Negative (NEGATIVE) Urine Urobilinogen Normal MG/DL (0.0-1.0) Urine Leukocyte Esterase 2+ (NEGATIVE) H Urine RBC 2-4 /HPF (0 - 2) H Urine WBC 10-15 /HPF (0 - 2) H Urine Squamous Epithelial Cells Moderate /LPF (NONE/OCC) H Urine Amorphous Sediment Many /LPF (NONE) H Urine Bacteria Moderate /HPF (NONE) H Stool Occult Blood Positive (NEGATIVE) White Blood Count 16.2 K/UL (4.8-10.8) H Red Blood Count 3.07 M/UL (4.20-5.40) L Hemoglobin 8.9 G/DL (12.0-16.0) L Hematocrit 28.9 % (37.0-47.0) L Mean Corpuscular Volume 94 FL (80-99) Mean Corpuscular Hemoglobin 29.1 PG (27.0-31.0) Mean Corpuscular Hemoglobin Concent 30.9 G/DL (32.0-36.0) L Red Cell Distribution Width 18.8 % (11.6-14.8) H Platelet Count 270 K/UL (150-450) Mean Platelet Volume 7.9 FL (6.5-10.1) Neutrophils (%) (Auto) 71.8 % (45.0-75.0) Lymphocytes (%) (Auto) 18.2 % (20.0-45.0) L Monocytes (%) (Auto) 7.1 % (1.0-10.0) Eosinophils (%) (Auto) 2.5 % (0.0-3.0) Basophils (%) (Auto) 0.4 % (0.0-2.0) Erythrocyte Sedimentation Rate 96 MM/HR (0-30) H Sodium Level 130 MMOL/L (136-145) L Potassium Level 4.2 MMOL/L (3.5-5.1) Chloride Level 94 MMOL/L (98-107) L Carbon Dioxide Level 27 MMOL/L (21-32) Anion Gap 9 mmol/L (5-15) Blood Urea Nitrogen 45 mg/dL (7-18) H Creatinine 5.4 MG/DL (0.55-1.30) H Estimat Glomerular Filtration Rate 8.1 mL/min (>60) Glucose Level 78 MG/DL (74-106) Calcium Level 7.9 MG/DL (8.5-10.1) L Phosphorus Level 2.6 MG/DL (2.5-4.9) Magnesium Level 1.7 MG/DL (1.8-2.4) L Iron Level 17 ug/dL (50-175) L Total Iron Binding Capacity 88 ug/dL (250-450) L Percent Iron Saturation 19 % (15-50) Unsaturated Iron Binding 71 ug/dL (112-346) L Ferritin 620 NG/ML (8-388) H Total Bilirubin 0.4 MG/DL (0.2-1.0) Aspartate Amino Transf (AST/SGOT) 12 U/L (15-37) L Alanine Aminotransferase (ALT/SGPT) 9 U/L (12-78) L Alkaline Phosphatase 100 U/L (46-116) Troponin I 0.017 ng/mL (0.000-0.056) Pro-B-Type Natriuretic Peptide 3793 pg/mL (0-125) H Total Protein 7.3 G/DL (6.4-8.2) Albumin 1.6 G/DL (3.4-5.0) L Globulin 5.7 g/dL Albumin/Globulin Ratio 0.3 (1.0-2.7) L Lipase 164 U/L (73-393) Vitamin B12 Level > 2000 PG/ML (193-986) H Folate 51.7 NG/ML (8.6-58.9) Current Medications Medications (Trade) Dose Ordered Sig/Victoriano Route PRN Reason Start Time Stop Time Status Last Admin Dose Admin Acetaminophen (Tylenol) 650 mg Q4H PRN ORAL Fever 06/18/18 22:00 07/18/18 21:59 06/20/18 08:33 Albuterol/ Ipratropium (Albuterol/ Ipratropium) 3 ml EVERY 4 HOURS PRN HHN Shortness of Breath 06/18/18 22:00 06/23/18 21:59 Dextrose (Dextrose 50%) 25 ml Q30M PRN IV Hypoglycemia 06/18/18 22:00 07/18/18 21:59 Dextrose (Dextrose 50%) 50 ml Q30M PRN IV Hypoglycemia 06/18/18 22:00 07/18/18 21:59 Dextrose/Sodium Chloride 1,000 ml @ 50 mls/hr Q20H IV 06/19/18 11:30 07/19/18 11:29 06/19/18 12:15 Heparin Sodium (Porcine) (Heparin 5000 units/ml) 5,000 units EVERY 12 HOURS SUBQ 06/19/18 09:00 07/19/18 08:59 06/20/18 08:34 Ondansetron HCl (Zofran) 4 mg Q6H PRN IVP Nausea & Vomiting 06/18/18 22:00 07/18/18 21:59 Piperacillin Sod/ Tazobactam Sod 2.25 gm/Dextrose 55 ml @ 110 mls/hr Q8HR IVPB 06/19/18 15:00 06/24/18 14:59 06/20/18 05:54 Polyethylene Glycol (Miralax) 17 gm DAILYPRN PRN ORAL Constipation 06/18/18 22:00 07/18/18 21:59 Temazepam (Restoril) 15 mg HSPRN PRN ORAL Insomnia 06/18/18 22:00 06/25/18 21:59 Vancomycin HCl (Firvanq) 125 mg FOUR TIMES A DAY ORAL 06/19/18 18:00 06/26/18 17:59 06/20/18 08:33 Cristian Montes MD Jun 20, 2018 10:13
--- NOTE | 2018-06-20 15:48 | Internal Med Progress Note ---
Subjective Date of Service: Jun 20, 2018 Physician Name Yunier Metcalf Attending Physician Benji Canas MD Current Medications Medications (Trade) Dose Ordered Sig/Victoriano Route PRN Reason Start Time Stop Time Status Last Admin Dose Admin Acetaminophen (Tylenol) 650 mg Q4H PRN ORAL Fever 06/18/18 22:00 07/18/18 21:59 06/20/18 08:33 Albuterol/ Ipratropium (Albuterol/ Ipratropium) 3 ml EVERY 4 HOURS PRN HHN Shortness of Breath 06/18/18 22:00 06/23/18 21:59 Dextrose (Dextrose 50%) 25 ml Q30M PRN IV Hypoglycemia 06/18/18 22:00 07/18/18 21:59 Dextrose (Dextrose 50%) 50 ml Q30M PRN IV Hypoglycemia 06/18/18 22:00 07/18/18 21:59 Dextrose/Sodium Chloride 1,000 ml @ 50 mls/hr Q20H IV 06/19/18 11:30 07/19/18 11:29 06/19/18 12:15 Heparin Sodium (Porcine) (Heparin 5000 units/ml) 5,000 units EVERY 12 HOURS SUBQ 06/19/18 09:00 07/19/18 08:59 06/20/18 08:34 Ondansetron HCl (Zofran) 4 mg Q6H PRN IVP Nausea & Vomiting 06/18/18 22:00 07/18/18 21:59 Piperacillin Sod/ Tazobactam Sod 2.25 gm/Dextrose 55 ml @ 110 mls/hr Q8HR IVPB 06/19/18 15:00 06/24/18 14:59 06/20/18 13:49 Polyethylene Glycol (Miralax) 17 gm DAILYPRN PRN ORAL Constipation 06/18/18 22:00 07/18/18 21:59 Temazepam (Restoril) 15 mg HSPRN PRN ORAL Insomnia 06/18/18 22:00 06/25/18 21:59 Vancomycin HCl (Firvanq) 125 mg FOUR TIMES A DAY ORAL 06/19/18 18:00 06/26/18 17:59 06/20/18 13:49 Allergies: Coded Allergies: No Known Allergies (Unverified , 06/18/18) ROS Limited/Unobtainable: No Constitutional: Reports: no symptoms HEENT: Reports: no symptoms Cardiovascular: Reports: no symptoms Respiratory: Reports: no symptoms Gastrointestinal/Abdominal: Reports: abdominal pain, diarrhea Genitourinary: Reports: no symptoms Neurologic/Psychiatric: Reports: no symptoms Subjective 57 YO F admitted with abdominal pain and diarrhea. Cover for Sandra Avina-Dr Canas. Objective Last Vital Signs Date Time Temp Pulse Resp B/P (MAP) Pulse Ox O2 Delivery O2 Flow Rate FiO2 06/20/18 12:00 98.1 72 16 119/53 (75) 97 06/20/18 09:00 Room Air Laboratory Tests Test 06/19/18 16:15 06/20/18 00:40 06/20/18 05:35 Urine Color Eloisa Urine Appearance Slightly cloudy Urine pH 5 (4.5-8.0) Urine Specific [place] 1.005 (1.005-1.035) Urine Protein 3+ (NEGATIVE) H Urine Glucose (UA) Negative (NEGATIVE) Urine Ketones Negative (NEGATIVE) Urine Blood 2+ (NEGATIVE) H Urine Nitrite Negative (NEGATIVE) Urine Bilirubin 2+ (NEGATIVE) H Urine Ictotest Negative (NEGATIVE) Urine Urobilinogen Normal MG/DL (0.0-1.0) Urine Leukocyte Esterase 2+ (NEGATIVE) H Urine RBC 2-4 /HPF (0 - 2) H Urine WBC 10-15 /HPF (0 - 2) H Urine Squamous Epithelial Cells Moderate /LPF (NONE/OCC) H Urine Amorphous Sediment Many /LPF (NONE) H Urine Bacteria Moderate /HPF (NONE) H Stool Occult Blood Positive (NEGATIVE) White Blood Count 16.2 K/UL (4.8-10.8) H Red Blood Count 3.07 M/UL (4.20-5.40) L Hemoglobin 8.9 G/DL (12.0-16.0) L Hematocrit 28.9 % (37.0-47.0) L Mean Corpuscular Volume 94 FL (80-99) Mean Corpuscular Hemoglobin 29.1 PG (27.0-31.0) Mean Corpuscular Hemoglobin Concent 30.9 G/DL (32.0-36.0) L Red Cell Distribution Width 18.8 % (11.6-14.8) H Platelet Count 270 K/UL (150-450) Mean Platelet Volume 7.9 FL (6.5-10.1) Neutrophils (%) (Auto) 71.8 % (45.0-75.0) Lymphocytes (%) (Auto) 18.2 % (20.0-45.0) L Monocytes (%) (Auto) 7.1 % (1.0-10.0) Eosinophils (%) (Auto) 2.5 % (0.0-3.0) Basophils (%) (Auto) 0.4 % (0.0-2.0) Erythrocyte Sedimentation Rate 96 MM/HR (0-30) H Sodium Level 130 MMOL/L (136-145) L Potassium Level 4.2 MMOL/L (3.5-5.1) Chloride Level 94 MMOL/L (98-107) L Carbon Dioxide Level 27 MMOL/L (21-32) Anion Gap 9 mmol/L (5-15) Blood Urea Nitrogen 45 mg/dL (7-18) H Creatinine 5.4 MG/DL (0.55-1.30) H Estimat Glomerular Filtration Rate 8.1 mL/min (>60) Glucose Level 78 MG/DL (74-106) Calcium Level 7.9 MG/DL (8.5-10.1) L Phosphorus Level 2.6 MG/DL (2.5-4.9) Magnesium Level 1.7 MG/DL (1.8-2.4) L Iron Level 17 ug/dL (50-175) L Total Iron Binding Capacity 88 ug/dL (250-450) L Percent Iron Saturation 19 % (15-50) Unsaturated Iron Binding 71 ug/dL (112-346) L Ferritin 620 NG/ML (8-388) H Total Bilirubin 0.4 MG/DL (0.2-1.0) Aspartate Amino Transf (AST/SGOT) 12 U/L (15-37) L Alanine Aminotransferase (ALT/SGPT) 9 U/L (12-78) L Alkaline Phosphatase 100 U/L (46-116) Troponin I 0.017 ng/mL (0.000-0.056) C-Reactive Protein, Quantitative 21.6 mg/dL (0.00-0.90) H Pro-B-Type Natriuretic Peptide 3793 pg/mL (0-125) H Total Protein 7.3 G/DL (6.4-8.2) Albumin 1.6 G/DL (3.4-5.0) L Globulin 5.7 g/dL Albumin/Globulin Ratio 0.3 (1.0-2.7) L Lipase 164 U/L (73-393) Vitamin B12 Level > 2000 PG/ML (193-986) H Folate 51.7 NG/ML (8.6-58.9) Microbiology Date/Time Source Procedure Growth Status 06/18/18 22:10 Nasal Nares MRSA Culture - Final NO METHICILLIN RESISTANT STAPH AUREUS... Complete 06/20/18 00:40 Stool Clostridium difficile Toxin Assay - Final Complete 06/19/18 16:15 Indwelling Cath Urine Culture - Preliminary NO GROWTH Resulted Intake and Output 06/19/18 06/20/18 19:00 07:00 Intake Total 1050 ml 1540 ml Balance 1050 ml 1540 ml Intake Oral 240 ml IV Total 250 ml 500 ml Other 800 ml 800 ml # Voids 6 # Bowel Movements 4 6 Objective PHYSICAL EXAMINATION: VITAL SIGNS: On admission, temperature 98.2, pulse of 82, respirations 18, and blood pressure 126/66. GENERAL: The patient is awake, responsive, in no acute distress. HEAD AND NECK: Pupils equal and reactive to light. Extraocular movements are intact. NECK: Supple. No JVD. Tracheostomy site was noted. Well-healed scar. CHEST: Chest wall has right-sided PermCath. No sign of infection. LUNGS: Chest has bilateral air entry. No wheezes or rhonchi. HEART: S1 and S2. Regular rhythm. No gallops. ABDOMEN: Soft. Generalized tenderness. No rebound tenderness. No fluid shift. PEG site is clean. EXTREMITIES: No cyanosis, clubbing, or edema. NEUROLOGIC: Cranial nerves II through XII grossly intact. Motor is 5/5 in all extremities. Gait was not assessed due to the patient's status Assessment/Plan Assessment/Plan ASSESSMENT: 1. Abdominal pain, most likely secondary to an acute colitis. 2. Pelvic mass. 3. End-stage renal disease, on hemodialysis. 4. Hypertension. 5. Dysphagia, status post PEG. 6. C. Diff neg-see ID note. PLAN: Admit the patient to medical floor. Continue antibiotic with oral vancomycin and Zosyn per ID. Follow up with Dr. Berry from Nephrology, Dr. Tanner from Pulmonary Critical Care Dr. Dougherty from Infectious Disease. Code status is Full Code. DVT prophylaxis, heparin subcutaneous. Yunier Metcalf MD Jun 20, 2018 15:48
[2018-06-20] MEDS ORDERED: Albumin Human 5% 250ml IV ONE ×2 (16:45→18:00)
--- NOTE | 2018-06-20 16:51 | Nephrology Progress Note ---
Assessment/Plan Problem List: (1) ESRD needing dialysis (2) Colitis (3) Anemia in chronic kidney disease (CKD) Assessment Abdominal pain - Colitis ESRD Has GT tube ! but taaking PO Anemia Leukocytosis ? Cath infection Plan NPO- ST eval, GI eval UA and c/s HD as needed- plan 06/22 Jay An, now on Zosyn Subjective ROS Limited/Unobtainable: No Constitutional: Reports: malaise, weakness Objective Objective Last 24 Hour Vital Signs Date Time Temp Pulse Resp B/P (MAP) Pulse Ox O2 Delivery O2 Flow Rate FiO2 06/20/18 12:00 98.1 72 16 119/53 (75) 97 06/20/18 09:00 Room Air 06/20/18 08:00 98.5 75 14 131/61 (84) 96 06/20/18 04:00 97.6 65 20 119/78 (92) 06/20/18 00:00 98.0 65 18 122/87 (99) 06/19/18 21:00 Room Air 06/19/18 20:00 97.8 75 18 125/87 (100) Intake and Output 06/19/18 06/20/18 19:00 07:00 Intake Total 1050 ml 1540 ml Balance 1050 ml 1540 ml Intake Oral 240 ml IV Total 250 ml 500 ml Other 800 ml 800 ml # Voids 6 # Bowel Movements 4 6 Laboratory Tests 06/20/18 00:40: Stool Occult Blood Positive 06/20/18 05:35: White Blood Count 16.2H, Red Blood Count 3.07L, Hemoglobin 8.9L, Hematocrit 28.9L, Mean Corpuscular Volume 94, Mean Corpuscular Hemoglobin 29.1, Mean Corpuscular Hemoglobin Concent 30.9L, Red Cell Distribution Width 18.8H, Platelet Count 270, Mean Platelet Volume 7.9, Neutrophils (%) (Auto) 71.8, Lymphocytes (%) (Auto) 18.2L, Monocytes (%) (Auto) 7.1, Eosinophils (%) (Auto) 2.5, Basophils (%) (Auto) 0.4, Erythrocyte Sedimentation Rate 96H, Sodium Level 130L, Potassium Level 4.2, Chloride Level 94L, Carbon Dioxide Level 27, Anion Gap 9, Blood Urea Nitrogen 45H, Creatinine 5.4H, Estimat Glomerular Filtration Rate 8.1, Glucose Level 78, Calcium Level 7.9L, Phosphorus Level 2.6, Magnesium Level 1.7L, Iron Level 17L, Total Iron Binding Capacity 88L, Percent Iron Saturation 19, Unsaturated Iron Binding 71L, Ferritin 620H, Total Bilirubin 0.4 , Aspartate Amino Transf (AST/SGOT) 12L, Alanine Aminotransferase (ALT/SGPT) 9L , Alkaline Phosphatase 100, Troponin I 0.017, C-Reactive Protein, Quantitative 21.6H, Pro-B-Type Natriuretic Peptide 3793H, Total Protein 7.3, Albumin 1.6L, Globulin 5.7, Albumin/Globulin Ratio 0.3L, Lipase 164, Vitamin B12 Level > 2000H , Folate 51.7 Height (Feet): 5 Height (Inches): 2.00 Weight (Pounds): 155 General Appearance: no apparent distress, lethargic Cardiovascular: regular rhythm Respiratory/Chest: decreased breath sounds Abdomen: soft, distended Anish Berry MD Jun 20, 2018 16:51
--- NOTE | 2018-06-20 19:24 | Pulmonology Progress Note ---
Assessment/Plan Problems: (1) Colitis (2) ESRD needing dialysis Assessment/Plan gtube was removed watch wbc check electrolytes Subjective ROS Limited/Unobtainable: No Constitutional: Reports: no symptoms Respiratory: Reports: no symptoms Allergies: Coded Allergies: No Known Allergies (Unverified , 06/18/18) Objective Last 24 Hour Vital Signs Date Time Temp Pulse Resp B/P (MAP) Pulse Ox O2 Delivery O2 Flow Rate FiO2 06/20/18 16:00 97.6 78 19 120/61 (80) 100 06/20/18 12:00 98.1 72 16 119/53 (75) 97 06/20/18 09:00 Room Air 06/20/18 08:00 98.5 75 14 131/61 (84) 96 06/20/18 04:00 97.6 65 20 119/78 (92) 06/20/18 00:00 98.0 65 18 122/87 (99) 06/19/18 21:00 Room Air 06/19/18 20:00 97.8 75 18 125/87 (100) Intake and Output 06/19/18 06/20/18 18:59 06:59 Intake Total 1000 ml 1590 ml Balance 1000 ml 1590 ml Intake Oral 240 ml IV Total 200 ml 550 ml Other 800 ml 800 ml # Voids 6 # Bowel Movements 4 6 General Appearance: WD/WN HEENT: normocephalic, atraumatic Respiratory/Chest: chest wall non-tender, lungs clear Breasts: no masses Cardiovascular: normal peripheral pulses Abdomen: normal bowel sounds, no organomegaly Genitourinary: normal external genitalia Skin: no rash Microbiology Date/Time Source Procedure Growth Status 06/18/18 22:10 Nasal Nares MRSA Culture - Final NO METHICILLIN RESISTANT STAPH AUREUS... Complete 06/20/18 00:40 Stool Clostridium difficile Toxin Assay - Final Complete 06/19/18 16:15 Indwelling Cath Urine Culture - Preliminary NO GROWTH Resulted Laboratory Tests 06/20/18 00:40: Stool Occult Blood Positive 06/20/18 05:35: White Blood Count 16.2H, Red Blood Count 3.07L, Hemoglobin 8.9L, Hematocrit 28.9L, Mean Corpuscular Volume 94, Mean Corpuscular Hemoglobin 29.1, Mean Corpuscular Hemoglobin Concent 30.9L, Red Cell Distribution Width 18.8H, Platelet Count 270, Mean Platelet Volume 7.9, Neutrophils (%) (Auto) 71.8, Lymphocytes (%) (Auto) 18.2L, Monocytes (%) (Auto) 7.1, Eosinophils (%) (Auto) 2.5, Basophils (%) (Auto) 0.4, Erythrocyte Sedimentation Rate 96H, Sodium Level 130L, Potassium Level 4.2, Chloride Level 94L, Carbon Dioxide Level 27, Anion Gap 9, Blood Urea Nitrogen 45H, Creatinine 5.4H, Estimat Glomerular Filtration Rate 8.1, Glucose Level 78, Calcium Level 7.9L, Phosphorus Level 2.6, Magnesium Level 1.7L, Iron Level 17L, Total Iron Binding Capacity 88L, Percent Iron Saturation 19, Unsaturated Iron Binding 71L, Ferritin 620H, Total Bilirubin 0.4 , Aspartate Amino Transf (AST/SGOT) 12L, Alanine Aminotransferase (ALT/SGPT) 9L , Alkaline Phosphatase 100, Troponin I 0.017, C-Reactive Protein, Quantitative 21.6H, Pro-B-Type Natriuretic Peptide 3793H, Total Protein 7.3, Albumin 1.6L, Globulin 5.7, Albumin/Globulin Ratio 0.3L, Lipase 164, Vitamin B12 Level > 2000H , Folate 51.7 Current Medications Medications (Trade) Dose Ordered Sig/Victoriano Route PRN Reason Start Time Stop Time Status Last Admin Dose Admin Acetaminophen (Tylenol) 650 mg Q4H PRN ORAL Fever 06/18/18 22:00 07/18/18 21:59 06/20/18 18:37 Albuterol/ Ipratropium (Albuterol/ Ipratropium) 3 ml EVERY 4 HOURS PRN HHN Shortness of Breath 06/18/18 22:00 06/23/18 21:59 Dextrose (Dextrose 50%) 25 ml Q30M PRN IV Hypoglycemia 06/18/18 22:00 07/18/18 21:59 Dextrose (Dextrose 50%) 50 ml Q30M PRN IV Hypoglycemia 06/18/18 22:00 07/18/18 21:59 Heparin Sodium (Porcine) (Heparin 5000 units/ml) 5,000 units EVERY 12 HOURS SUBQ 06/19/18 09:00 07/19/18 08:59 06/20/18 08:34 Ondansetron HCl (Zofran) 4 mg Q6H PRN IVP Nausea & Vomiting 06/18/18 22:00 07/18/18 21:59 06/20/18 18:17 Piperacillin Sod/ Tazobactam Sod 2.25 gm/Dextrose 55 ml @ 110 mls/hr Q8HR IVPB 06/19/18 15:00 06/24/18 14:59 06/20/18 13:49 Polyethylene Glycol (Miralax) 17 gm DAILYPRN PRN ORAL Constipation 06/18/18 22:00 07/18/18 21:59 Temazepam (Restoril) 15 mg HSPRN PRN ORAL Insomnia 06/18/18 22:00 06/25/18 21:59 Vancomycin HCl (Firvanq) 125 mg FOUR TIMES A DAY ORAL 06/19/18 18:00 06/26/18 17:59 06/20/18 13:49 Anupama Tanner MD Jun 20, 2018 19:24
--- NOTE | 2018-06-20 20:42 | General Progress Note ---
Assessment/Plan Assessment/Plan Assessment - Colitis, presumed C Diff although assay negative - Leukocytosis - dysphagia, s/p PEG - Diarrhea Recommendations - continue abx as written, since responding - po diet ad arturo - follow labs - remove GT once improved Subjective Allergies: Coded Allergies: No Known Allergies (Unverified , 06/18/18) Subjective Feels OK eating well no abd pain some irritation at GT site multiple BM noted C Diff (-) Objective Last 24 Hour Vital Signs Date Time Temp Pulse Resp B/P (MAP) Pulse Ox O2 Delivery O2 Flow Rate FiO2 06/20/18 20:00 97.5 70 18 98/51 (67) 100 06/20/18 16:00 97.6 78 19 120/61 (80) 100 06/20/18 12:00 98.1 72 16 119/53 (75) 97 06/20/18 09:00 Room Air 06/20/18 08:00 98.5 75 14 131/61 (84) 96 06/20/18 04:00 97.6 65 20 119/78 (92) 06/20/18 00:00 98.0 65 18 122/87 (99) 06/19/18 21:00 Room Air Intake and Output 06/19/18 06/20/18 18:59 06:59 Intake Total 1000 ml 1590 ml Balance 1000 ml 1590 ml Intake Oral 240 ml IV Total 200 ml 550 ml Other 800 ml 800 ml # Voids 6 # Bowel Movements 4 6 Laboratory Tests 06/20/18 00:40: Stool Occult Blood Positive 06/20/18 05:35: White Blood Count 16.2H, Red Blood Count 3.07L, Hemoglobin 8.9L, Hematocrit 28.9L, Mean Corpuscular Volume 94, Mean Corpuscular Hemoglobin 29.1, Mean Corpuscular Hemoglobin Concent 30.9L, Red Cell Distribution Width 18.8H, Platelet Count 270, Mean Platelet Volume 7.9, Neutrophils (%) (Auto) 71.8, Lymphocytes (%) (Auto) 18.2L, Monocytes (%) (Auto) 7.1, Eosinophils (%) (Auto) 2.5, Basophils (%) (Auto) 0.4, Erythrocyte Sedimentation Rate 96H, Sodium Level 130L, Potassium Level 4.2, Chloride Level 94L, Carbon Dioxide Level 27, Anion Gap 9, Blood Urea Nitrogen 45H, Creatinine 5.4H, Estimat Glomerular Filtration Rate 8.1, Glucose Level 78, Calcium Level 7.9L, Phosphorus Level 2.6, Magnesium Level 1.7L, Iron Level 17L, Total Iron Binding Capacity 88L, Percent Iron Saturation 19, Unsaturated Iron Binding 71L, Ferritin 620H, Total Bilirubin 0.4 , Aspartate Amino Transf (AST/SGOT) 12L, Alanine Aminotransferase (ALT/SGPT) 9L , Alkaline Phosphatase 100, Troponin I 0.017, C-Reactive Protein, Quantitative 21.6H, Pro-B-Type Natriuretic Peptide 3793H, Total Protein 7.3, Albumin 1.6L, Globulin 5.7, Albumin/Globulin Ratio 0.3L, Lipase 164, Vitamin B12 Level > 2000H , Folate 51.7 Height (Feet): 5 Height (Inches): 2.00 Weight (Pounds): 155 Objective WDWN L woman NCAT Supple CTA RRR abd soft ND , (+) GT no edema Krystal Braxton MD Jun 20, 2018 20:42
[2018-06-20] MEDS ORDERED: Vancomycin oral 125mg/2.5ml ORAL SCH (21:00)
[2018-06-21] VITALS (7 sets, daily range): BP systolic 106–129; BP diastolic 58–73
[2018-06-21] MEDS: Piperacillin/Tazobactam 2.25 GM in D5W 55 ML IVPB SCH ×3 (05:24→22:18)
[2018-06-21 07:29] LABS: BASOPHILS % (AUTO) 0.7 % (0.0-2.0); EOSINOPHILS % (AUTO) 3.2 % (0.0-3.0); HEMATOCRIT 28.6 % (37.0-47.0); HEMOGLOBIN 8.8 G/DL (12.0-16.0); MEAN CORPUSCULAR VOLUME 93 FL (80-99); MONOCYTES % (AUTO) 7.3 % (1.0-10.0); NEUTROPHILS % (AUTO) 70.9 % (45.0-75.0); PLATELET COUNT 309 K/UL (150-450); RED BLOOD COUNT 3.08 M/UL (4.20-5.40); RED CELL DISTRIBUTION WIDTH 18.5 % (11.6-14.8); WHITE BLOOD COUNT 14.9 K/UL (4.8-10.8)
[2018-06-21 07:40] LABS: ALANINE AMINOTRANSFERASE 10 U/L (12-78); ALBUMIN 1.7 G/DL (3.4-5.0); ALBUMIN/GLOBULIN RATIO 0.3 (1.0-2.7); ALKALINE PHOSPHATASE 101 U/L (46-116); ANION GAP 11 mmol/L (5-15); ASPARTATE AMINO TRANSFERASE 14 U/L (15-37); BILIRUBIN,TOTAL 0.3 MG/DL (0.2-1.0); BLOOD UREA NITROGEN 50 mg/dL (7-18); CALCIUM 8.1 MG/DL (8.5-10.1); CARBON DIOXIDE 24 MMOL/L (21-32); CHLORIDE 94 MMOL/L (98-107); CREATININE 6.1 MG/DL (0.55-1.30); PHOSPHORUS 3.5 MG/DL (2.5-4.9); POTASSIUM 4.2 MMOL/L (3.5-5.1); SODIUM 129 MMOL/L (136-145)
[2018-06-21] MEDS: Vancomycin oral 125mg/2.5ml ORAL SCH ×4 (09:18→20:12)
[2018-06-21] MEDS: Heparin 5000 units/ml inj SUBQ SCH ×2 (09:22→20:20)
--- NOTE | 2018-06-21 14:09 | Nephrology Progress Note ---
Assessment/Plan Problem List: (1) ESRD needing dialysis (2) Colitis (3) Anemia in chronic kidney disease (CKD) Assessment Abdominal pain - Colitis ESRD Has GT tube ! but taaking PO Anemia Leukocytosis ? Cath infection Plan Dc figueroa- on Renal diet HD in am UA and c/s HD as needed- plan 06/22 Jay An, now on Zosyn Subjective ROS Limited/Unobtainable: No Constitutional: Reports: malaise, weakness Objective Objective Last 24 Hour Vital Signs Date Time Temp Pulse Resp B/P (MAP) Pulse Ox O2 Delivery O2 Flow Rate FiO2 06/21/18 12:00 98.1 70 16 106/63 (77) 99 06/21/18 09:00 Room Air 06/21/18 08:00 96.3 76 16 128/66 (86) 97 06/21/18 05:00 97.8 75 16 126/58 (80) 97 06/20/18 23:34 97.9 77 17 124/59 (80) 98 06/20/18 21:00 Room Air 06/20/18 20:00 97.5 70 18 98/51 (67) 100 06/20/18 16:00 97.6 78 19 120/61 (80) 100 Intake and Output 06/20/18 06/21/18 19:00 07:00 Intake Total 205 ml 110 ml Output Total 150 ml Balance 205 ml -40 ml IV Total 205 ml 110 ml Output Urine Total 150 ml # Bowel Movements 4 3 Laboratory Tests 06/21/18 05:35: White Blood Count 14.9H, Red Blood Count 3.08L, Hemoglobin 8.8L, Hematocrit 28.6L, Mean Corpuscular Volume 93, Mean Corpuscular Hemoglobin 28.7, Mean Corpuscular Hemoglobin Concent 30.9L, Red Cell Distribution Width 18.5H, Platelet Count 309, Mean Platelet Volume 7.6, Neutrophils (%) (Auto) 70.9, Lymphocytes (%) (Auto) 18.0L, Monocytes (%) (Auto) 7.3, Eosinophils (%) (Auto) 3.2H, Basophils (%) (Auto) 0.7, Sodium Level 129L, Potassium Level 4.2, Chloride Level 94L, Carbon Dioxide Level 24, Anion Gap 11, Blood Urea Nitrogen 50H, Creatinine 6.1H, Estimat Glomerular Filtration Rate 7.0, Glucose Level 74, Calcium Level 8.1L, Phosphorus Level 3.5, Magnesium Level 1.7L, Total Bilirubin 0.3, Aspartate Amino Transf (AST/SGOT) 14L, Alanine Aminotransferase (ALT/SGPT) 10L, Alkaline Phosphatase 101, Total Protein 7.1, Albumin 1.7L, Globulin 5.4, Albumin/Globulin Ratio 0.3L Height (Feet): 5 Height (Inches): 2.00 Weight (Pounds): 155 General Appearance: no apparent distress Cardiovascular: normal rate Respiratory/Chest: decreased breath sounds Abdomen: distended Anish Berry MD Jun 21, 2018 14:09
--- NOTE | 2018-06-21 15:45 | Internal Med Progress Note ---
Subjective Date of Service: Jun 21, 2018 Physician Name Yunier Metcalf Attending Physician Benji Canas MD Current Medications Medications (Trade) Dose Ordered Sig/Victoriano Route PRN Reason Start Time Stop Time Status Last Admin Dose Admin Acetaminophen (Tylenol) 650 mg Q4H PRN ORAL Fever 06/18/18 22:00 07/18/18 21:59 06/21/18 09:57 Albuterol/ Ipratropium (Albuterol/ Ipratropium) 3 ml EVERY 4 HOURS PRN HHN Shortness of Breath 06/18/18 22:00 06/23/18 21:59 Dextrose (Dextrose 50%) 25 ml Q30M PRN IV Hypoglycemia 06/18/18 22:00 07/18/18 21:59 Dextrose (Dextrose 50%) 50 ml Q30M PRN IV Hypoglycemia 06/18/18 22:00 07/18/18 21:59 Heparin Sodium (Porcine) (Heparin 5000 units/ml) 5,000 units EVERY 12 HOURS SUBQ 06/19/18 09:00 07/19/18 08:59 06/21/18 09:22 Ondansetron HCl (Zofran) 4 mg Q6H PRN IVP Nausea & Vomiting 06/18/18 22:00 07/18/18 21:59 06/20/18 18:17 Pantoprazole (Protonix) 40 mg EVERY 12 HOURS ORAL 06/21/18 21:00 07/21/18 20:59 Piperacillin Sod/ Tazobactam Sod 2.25 gm/Dextrose 55 ml @ 110 mls/hr Q8HR IVPB 06/19/18 15:00 06/24/18 14:59 06/21/18 13:56 Polyethylene Glycol (Miralax) 17 gm DAILYPRN PRN ORAL Constipation 06/18/18 22:00 07/18/18 21:59 Temazepam (Restoril) 15 mg HSPRN PRN ORAL Insomnia 06/18/18 22:00 06/25/18 21:59 Vancomycin HCl (Firvanq) 125 mg FOUR TIMES A DAY ORAL 06/21/18 00:00 06/28/18 00:00 06/21/18 13:55 Allergies: Coded Allergies: No Known Allergies (Unverified , 06/18/18) ROS Limited/Unobtainable: No Constitutional: Reports: no symptoms HEENT: Reports: no symptoms Cardiovascular: Reports: no symptoms Respiratory: Reports: no symptoms Gastrointestinal/Abdominal: Reports: abdominal pain, diarrhea Genitourinary: Reports: no symptoms Neurologic/Psychiatric: Reports: no symptoms Subjective 57 YO F admitted with abdominal pain and diarrhea. Cover for Int Fabrice-Dr Canas. Objective Last Vital Signs Date Time Temp Pulse Resp B/P (MAP) Pulse Ox O2 Delivery O2 Flow Rate FiO2 06/21/18 12:00 98.1 70 16 106/63 (77) 99 06/21/18 09:00 Room Air Laboratory Tests Test 06/21/18 05:35 White Blood Count 14.9 K/UL (4.8-10.8) H Red Blood Count 3.08 M/UL (4.20-5.40) L Hemoglobin 8.8 G/DL (12.0-16.0) L Hematocrit 28.6 % (37.0-47.0) L Mean Corpuscular Volume 93 FL (80-99) Mean Corpuscular Hemoglobin 28.7 PG (27.0-31.0) Mean Corpuscular Hemoglobin Concent 30.9 G/DL (32.0-36.0) L Red Cell Distribution Width 18.5 % (11.6-14.8) H Platelet Count 309 K/UL (150-450) Mean Platelet Volume 7.6 FL (6.5-10.1) Neutrophils (%) (Auto) 70.9 % (45.0-75.0) Lymphocytes (%) (Auto) 18.0 % (20.0-45.0) L Monocytes (%) (Auto) 7.3 % (1.0-10.0) Eosinophils (%) (Auto) 3.2 % (0.0-3.0) H Basophils (%) (Auto) 0.7 % (0.0-2.0) Sodium Level 129 MMOL/L (136-145) L Potassium Level 4.2 MMOL/L (3.5-5.1) Chloride Level 94 MMOL/L (98-107) L Carbon Dioxide Level 24 MMOL/L (21-32) Anion Gap 11 mmol/L (5-15) Blood Urea Nitrogen 50 mg/dL (7-18) H Creatinine 6.1 MG/DL (0.55-1.30) H Estimat Glomerular Filtration Rate 7.0 mL/min (>60) Glucose Level 74 MG/DL (74-106) Calcium Level 8.1 MG/DL (8.5-10.1) L Phosphorus Level 3.5 MG/DL (2.5-4.9) Magnesium Level 1.7 MG/DL (1.8-2.4) L Total Bilirubin 0.3 MG/DL (0.2-1.0) Aspartate Amino Transf (AST/SGOT) 14 U/L (15-37) L Alanine Aminotransferase (ALT/SGPT) 10 U/L (12-78) L Alkaline Phosphatase 101 U/L (46-116) Total Protein 7.1 G/DL (6.4-8.2) Albumin 1.7 G/DL (3.4-5.0) L Globulin 5.4 g/dL Albumin/Globulin Ratio 0.3 (1.0-2.7) L Microbiology Date/Time Source Procedure Growth Status 06/18/18 22:10 Nasal Nares MRSA Culture - Final NO METHICILLIN RESISTANT STAPH AUREUS... Complete 06/20/18 00:40 Stool Clostridium difficile Toxin Assay - Final Complete 06/19/18 16:15 Indwelling Cath Urine Culture - Final NO GROWTH AFTER 48 HOURS Complete 06/18/18 22:10 Rectum VRE Culture - Final Enterococcus Faecium - Vre Complete Intake and Output 06/20/18 06/21/18 19:00 07:00 Intake Total 205 ml 110 ml Output Total 150 ml Balance 205 ml -40 ml IV Total 205 ml 110 ml Output Urine Total 150 ml # Bowel Movements 4 3 Objective PHYSICAL EXAMINATION: VITAL SIGNS: On admission, temperature 98.2, pulse of 82, respirations 18, and blood pressure 126/66. GENERAL: The patient is awake, responsive, in no acute distress. HEAD AND NECK: Pupils equal and reactive to light. Extraocular movements are intact. NECK: Supple. No JVD. Tracheostomy site was noted. Well-healed scar. CHEST: Chest wall has right-sided PermCath. No sign of infection. LUNGS: Chest has bilateral air entry. No wheezes or rhonchi. HEART: S1 and S2. Regular rhythm. No gallops. ABDOMEN: Soft. Generalized tenderness. No rebound tenderness. No fluid shift. PEG site is clean. EXTREMITIES: No cyanosis, clubbing, or edema. NEUROLOGIC: Cranial nerves II through XII grossly intact. Motor is 5/5 in all extremities. Gait was not assessed due to the patient's status Assessment/Plan Assessment/Plan ASSESSMENT: 1. Abdominal pain, most likely secondary to an acute colitis. 2. Pelvic mass. 3. End-stage renal disease, on hemodialysis. 4. Hypertension. 5. Dysphagia, status post PEG. 6. C. Diff neg-see ID note. PLAN: Admit the patient to medical floor. Continue antibiotic with oral vancomycin and Zosyn per ID. Follow up with Dr. Berry from Nephrology, Dr. Tanner from Pulmonary Critical Care Dr. Dougherty from Infectious Disease. Code status is Full Code. DVT prophylaxis, heparin subcutaneous. Yunier Metcalf MD Jun 21, 2018 15:45
--- NOTE | 2018-06-21 20:03 | General Progress Note ---
Assessment/Plan Assessment/Plan Assessment - Colitis, presumed C Diff although assay negative - Leukocytosis - dysphagia, s/p PEG - Diarrhea Recommendations - continue abx as written, since responding - po diet ad arturo - follow labs - remove GT once improved Subjective Allergies: Coded Allergies: No Known Allergies (Unverified , 06/18/18) Subjective Feels OK eating well no abd pain Objective Last 24 Hour Vital Signs Date Time Temp Pulse Resp B/P (MAP) Pulse Ox O2 Delivery O2 Flow Rate FiO2 06/21/18 16:00 97.2 87 18 112/62 (79) 99 06/21/18 12:00 98.1 70 16 106/63 (77) 99 06/21/18 09:00 Room Air 06/21/18 08:00 96.3 76 16 128/66 (86) 97 06/21/18 05:00 97.8 75 16 126/58 (80) 97 06/20/18 23:34 97.9 77 17 124/59 (80) 98 06/20/18 21:00 Room Air Intake and Output 06/20/18 06/21/18 18:59 06:59 Intake Total 205 ml 110 ml Output Total 150 ml Balance 205 ml -40 ml IV Total 205 ml 110 ml Output Urine Total 150 ml # Bowel Movements 4 3 Laboratory Tests 06/21/18 05:35: White Blood Count 14.9H, Red Blood Count 3.08L, Hemoglobin 8.8L, Hematocrit 28.6L, Mean Corpuscular Volume 93, Mean Corpuscular Hemoglobin 28.7, Mean Corpuscular Hemoglobin Concent 30.9L, Red Cell Distribution Width 18.5H, Platelet Count 309, Mean Platelet Volume 7.6, Neutrophils (%) (Auto) 70.9, Lymphocytes (%) (Auto) 18.0L, Monocytes (%) (Auto) 7.3, Eosinophils (%) (Auto) 3.2H, Basophils (%) (Auto) 0.7, Sodium Level 129L, Potassium Level 4.2, Chloride Level 94L, Carbon Dioxide Level 24, Anion Gap 11, Blood Urea Nitrogen 50H, Creatinine 6.1H, Estimat Glomerular Filtration Rate 7.0, Glucose Level 74, Calcium Level 8.1L, Phosphorus Level 3.5, Magnesium Level 1.7L, Total Bilirubin 0.3, Aspartate Amino Transf (AST/SGOT) 14L, Alanine Aminotransferase (ALT/SGPT) 10L, Alkaline Phosphatase 101, Total Protein 7.1, Albumin 1.7L, Globulin 5.4, Albumin/Globulin Ratio 0.3L Height (Feet): 5 Height (Inches): 2.00 Weight (Pounds): 155 Objective WDWN L woman NCAT Supple CTA RRR abd soft ND , (+) GT no edema Krystal Braxton MD Jun 21, 2018 20:03
[2018-06-22 04:00] VITALS: BP 143/71
[2018-06-22] MEDS: Piperacillin/Tazobactam 2.25 GM in D5W 55 ML IVPB SCH ×2 (06:27→14:00)
[2018-06-22 06:59] LABS: BASOPHILS % (AUTO) 0.6 % (0.0-2.0); EOSINOPHILS % (AUTO) 2.6 % (0.0-3.0); HEMATOCRIT 32.9 % (37.0-47.0); HEMOGLOBIN 10.2 G/DL (12.0-16.0); LYMPHOCYTES % (AUTO) 21.1 % (20.0-45.0); MEAN CORPUSCULAR VOLUME 92 FL (80-99); MONOCYTES % (AUTO) 7.6 % (1.0-10.0); NEUTROPHILS % (AUTO) 68.1 % (45.0-75.0); PLATELET COUNT 373 K/UL (150-450); RED BLOOD COUNT 3.56 M/UL (4.20-5.40); RED CELL DISTRIBUTION WIDTH 18.7 % (11.6-14.8); WHITE BLOOD COUNT 11.7 K/UL (4.8-10.8)
[2018-06-22 07:37] LABS: ALANINE AMINOTRANSFERASE 11 U/L (12-78); ALBUMIN 1.6 G/DL (3.4-5.0); ALBUMIN/GLOBULIN RATIO 0.3 (1.0-2.7); ALKALINE PHOSPHATASE 102 U/L (46-116); ANION GAP 13 mmol/L (5-15); ASPARTATE AMINO TRANSFERASE 14 U/L (15-37); BILIRUBIN,TOTAL 0.4 MG/DL (0.2-1.0); BLOOD UREA NITROGEN 56 mg/dL (7-18); CALCIUM 8.5 MG/DL (8.5-10.1); CARBON DIOXIDE 22 MMOL/L (21-32); CHLORIDE 90 MMOL/L (98-107); CREATININE 7.2 MG/DL (0.55-1.30); PHOSPHORUS 4.6 MG/DL (2.5-4.9); POTASSIUM 4.7 MMOL/L (3.5-5.1); SODIUM 125 MMOL/L (136-145)
[2018-06-22 08:00] VITALS: BP 131/69
[2018-06-22] MEDS: Heparin 5000 units/ml inj SUBQ SCH ×2 (08:50→21:24)
[2018-06-22] MEDS: Vancomycin oral 125mg/2.5ml ORAL SCH ×3 (08:50→21:25)
--- NOTE | 2018-06-22 11:02 | General Progress Note ---
Assessment/Plan Problem List: (1) Diarrhea ICD Codes: R19.7 - Diarrhea, unspecified SNOMED: 00095224 (2) ESRD needing dialysis ICD Codes: N18.6 - End stage renal disease; Z99.2 - Dependence on renal dialysis SNOMED: 13183553 (3) Anemia in chronic kidney disease (CKD) ICD Codes: N18.9 - Chronic kidney disease, unspecified; D63.1 - Anemia in chronic kidney disease SNOMED: 578610214 Assessment/Plan dc protonix dc miralax GT was removed today no shower for 24 hours dc po vanco given neg C.diff imodium prn fu labs colonoscopy if needed Subjective ROS Limited/Unobtainable: Yes Allergies: Coded Allergies: No Known Allergies (Unverified , 06/18/18) Subjective diarrhea Objective Last 24 Hour Vital Signs Date Time Temp Pulse Resp B/P (MAP) Pulse Ox O2 Delivery O2 Flow Rate FiO2 06/22/18 08:30 Room Air 06/22/18 08:00 97.4 86 18 131/69 (89) 99 06/22/18 04:00 97.8 78 19 143/71 (95) 99 06/21/18 23:00 97.2 80 19 129/66 (87) 99 06/21/18 21:55 99 20 Room Air 21 06/21/18 21:00 Room Air 06/21/18 20:42 97.9 06/21/18 20:00 97.9 84 19 124/73 (90) 99 06/21/18 16:00 97.2 87 18 112/62 (79) 99 06/21/18 12:00 98.1 70 16 106/63 (77) 99 Intake and Output 06/21/18 06/22/18 19:00 07:00 Intake Total 55 ml 310 ml Balance 55 ml 310 ml Intake Oral 200 ml IV Total 55 ml 110 ml # Voids 2 1 # Bowel Movements 1 4 Laboratory Tests 06/22/18 06:25: White Blood Count 11.7H, Red Blood Count 3.56L, Hemoglobin 10.2L, Hematocrit 32.9L, Mean Corpuscular Volume 92, Mean Corpuscular Hemoglobin 28.5, Mean Corpuscular Hemoglobin Concent 30.9L, Red Cell Distribution Width 18.7H, Platelet Count 373, Mean Platelet Volume 7.1, Neutrophils (%) (Auto) 68.1, Lymphocytes (%) (Auto) 21.1, Monocytes (%) (Auto) 7.6, Eosinophils (%) (Auto) 2.6, Basophils (%) (Auto) 0.6, Sodium Level 125L, Potassium Level 4.7, Chloride Level 90L, Carbon Dioxide Level 22, Anion Gap 13, Blood Urea Nitrogen 56H, Creatinine 7.2H, Estimat Glomerular Filtration Rate 5.8, Glucose Level 66L, Calcium Level 8.5, Phosphorus Level 4.6, Total Bilirubin 0.4, Aspartate Amino Transf (AST/SGOT) 14L, Alanine Aminotransferase (ALT/SGPT) 11L, Alkaline Phosphatase 102, C-Reactive Protein, Quantitative 17.2H, Total Protein 7.2, Albumin 1.6L, Globulin 5.6, Albumin/Globulin Ratio 0.3L, Random Vancomycin Level 19.5 Height (Feet): 5 Height (Inches): 2.00 Weight (Pounds): 155 General Appearance: alert EENT: normal ENT inspection Neck: supple Cardiovascular: normal rate Respiratory/Chest: lungs clear Abdomen: normal bowel sounds, non tender, soft Extremities: non-tender Theron Casiano MD Jun 22, 2018 11:02
[2018-06-22 12:00] VITALS: BP 125/66
--- NOTE | 2018-06-22 12:38 | Nephrology Progress Note ---
Assessment/Plan Problem List: (1) ESRD needing dialysis (2) Colitis (3) Anemia in chronic kidney disease (CKD) Assessment Abdominal pain - Colitis ESRD Has GT tube ! but taaking PO Anemia Leukocytosis ? Cath infection Plan DC figueroa- on Renal diet HD today UA and c/s HD as needed- plan 06/22 Jay An, now on Zosyn Subjective ROS Limited/Unobtainable: No Constitutional: Reports: malaise Objective Objective Last 24 Hour Vital Signs Date Time Temp Pulse Resp B/P (MAP) Pulse Ox O2 Delivery O2 Flow Rate FiO2 06/22/18 12:00 97.5 78 18 125/66 (85) 98 06/22/18 08:30 Room Air 06/22/18 08:00 97.4 86 18 131/69 (89) 99 06/22/18 04:00 97.8 78 19 143/71 (95) 99 06/21/18 23:00 97.2 80 19 129/66 (87) 99 06/21/18 21:55 99 20 Room Air 21 06/21/18 21:00 Room Air 06/21/18 20:42 97.9 06/21/18 20:00 97.9 84 19 124/73 (90) 99 06/21/18 16:00 97.2 87 18 112/62 (79) 99 Intake and Output 06/21/18 06/22/18 19:00 07:00 Intake Total 55 ml 310 ml Balance 55 ml 310 ml Intake Oral 200 ml IV Total 55 ml 110 ml # Voids 2 1 # Bowel Movements 1 4 Laboratory Tests 06/22/18 06:25: White Blood Count 11.7H, Red Blood Count 3.56L, Hemoglobin 10.2L, Hematocrit 32.9L, Mean Corpuscular Volume 92, Mean Corpuscular Hemoglobin 28.5, Mean Corpuscular Hemoglobin Concent 30.9L, Red Cell Distribution Width 18.7H, Platelet Count 373, Mean Platelet Volume 7.1, Neutrophils (%) (Auto) 68.1, Lymphocytes (%) (Auto) 21.1, Monocytes (%) (Auto) 7.6, Eosinophils (%) (Auto) 2.6, Basophils (%) (Auto) 0.6, Sodium Level 125L, Potassium Level 4.7, Chloride Level 90L, Carbon Dioxide Level 22, Anion Gap 13, Blood Urea Nitrogen 56H, Creatinine 7.2H, Estimat Glomerular Filtration Rate 5.8, Glucose Level 66L, Calcium Level 8.5, Phosphorus Level 4.6, Total Bilirubin 0.4, Aspartate Amino Transf (AST/SGOT) 14L, Alanine Aminotransferase (ALT/SGPT) 11L, Alkaline Phosphatase 102, C-Reactive Protein, Quantitative 17.2H, Total Protein 7.2, Albumin 1.6L, Globulin 5.6, Albumin/Globulin Ratio 0.3L, Random Vancomycin Level 19.5 Height (Feet): 5 Height (Inches): 2.00 Weight (Pounds): 155 General Appearance: no apparent distress Cardiovascular: normal rate Respiratory/Chest: decreased breath sounds Abdomen: soft, distended Objective no change Anish Berry MD Jun 22, 2018 12:38
--- NOTE | 2018-06-22 13:51 | Pulmonology Progress Note ---
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 services director Subjective ROS Limited/Unobtainable: No Constitutional: Reports: no symptoms HEENT: Repors: no symptoms Respiratory: Reports: no symptoms Allergies: Coded Allergies: No Known Allergies (Unverified , 06/18/18) Objective Last 24 Hour Vital Signs Date Time Temp Pulse Resp B/P (MAP) Pulse Ox O2 Delivery O2 Flow Rate FiO2 06/22/18 12:00 97.5 78 18 125/66 (85) 98 06/22/18 08:30 Room Air 06/22/18 08:00 97.4 86 18 131/69 (89) 99 06/22/18 04:00 97.8 78 19 143/71 (95) 99 06/21/18 23:00 97.2 80 19 129/66 (87) 99 06/21/18 21:55 99 20 Room Air 21 06/21/18 21:00 Room Air 06/21/18 20:42 97.9 06/21/18 20:00 97.9 84 19 124/73 (90) 99 06/21/18 16:00 97.2 87 18 112/62 (79) 99 Intake and Output 06/21/18 06/22/18 19:00 07:00 Intake Total 55 ml 310 ml Balance 55 ml 310 ml Intake Oral 200 ml IV Total 55 ml 110 ml # Voids 2 1 # Bowel Movements 1 4 General Appearance: WD/WN HEENT: normocephalic, atraumatic Respiratory/Chest: chest wall non-tender, lungs clear Breasts: no masses Cardiovascular: normal peripheral pulses Abdomen: normal bowel sounds, no organomegaly Genitourinary: normal external genitalia Skin: no rash Microbiology Date/Time Source Procedure Growth Status 06/20/18 00:40 Stool Stool Culture - Preliminary NO SALMONELLA,SHIGELLA,OR CAMPYLOBACT... Resulted 06/20/18 00:40 Stool Clostridium difficile Toxin Assay - Final Complete 06/19/18 16:15 Indwelling Cath Urine Culture - Final NO GROWTH AFTER 48 HOURS Complete Laboratory Tests 06/22/18 06:25: White Blood Count 11.7H, Red Blood Count 3.56L, Hemoglobin 10.2L, Hematocrit 32.9L, Mean Corpuscular Volume 92, Mean Corpuscular Hemoglobin 28.5, Mean Corpuscular Hemoglobin Concent 30.9L, Red Cell Distribution Width 18.7H, Platelet Count 373, Mean Platelet Volume 7.1, Neutrophils (%) (Auto) 68.1, Lymphocytes (%) (Auto) 21.1, Monocytes (%) (Auto) 7.6, Eosinophils (%) (Auto) 2.6, Basophils (%) (Auto) 0.6, Sodium Level 125L, Potassium Level 4.7, Chloride Level 90L, Carbon Dioxide Level 22, Anion Gap 13, Blood Urea Nitrogen 56H, Creatinine 7.2H, Estimat Glomerular Filtration Rate 5.8, Glucose Level 66L, Calcium Level 8.5, Phosphorus Level 4.6, Total Bilirubin 0.4, Aspartate Amino Transf (AST/SGOT) 14L, Alanine Aminotransferase (ALT/SGPT) 11L, Alkaline Phosphatase 102, C-Reactive Protein, Quantitative 17.2H, Total Protein 7.2, Albumin 1.6L, Globulin 5.6, Albumin/Globulin Ratio 0.3L, Random Vancomycin Level 19.5 Current Medications Medications (Trade) Dose Ordered Sig/Victoriano Route PRN Reason Start Time Stop Time Status Last Admin Dose Admin Acetaminophen (Tylenol) 650 mg Q4H PRN ORAL Fever 06/18/18 22:00 07/18/18 21:59 06/22/18 11:04 Albuterol/ Ipratropium (Albuterol/ Ipratropium) 3 ml EVERY 4 HOURS PRN HHN Shortness of Breath 06/18/18 22:00 06/23/18 21:59 Dextrose (Dextrose 50%) 25 ml Q30M PRN IV Hypoglycemia 06/18/18 22:00 07/18/18 21:59 Dextrose (Dextrose 50%) 50 ml Q30M PRN IV Hypoglycemia 06/18/18 22:00 07/18/18 21:59 Heparin Sodium (Porcine) (Heparin 5000 units/ml) 5,000 units EVERY 12 HOURS SUBQ 06/19/18 09:00 07/19/18 08:59 06/21/18 20:20 Ondansetron HCl (Zofran) 4 mg Q6H PRN IVP Nausea & Vomiting 06/18/18 22:00 07/18/18 21:59 06/20/18 18:17 Piperacillin Sod/ Tazobactam Sod 2.25 gm/Dextrose 55 ml @ 110 mls/hr Q8HR IVPB 06/19/18 15:00 06/24/18 14:59 06/22/18 06:27 Temazepam (Restoril) 15 mg HSPRN PRN ORAL Insomnia 06/18/18 22:00 06/25/18 21:59 Anupama Tanner MD Jun 22, 2018 13:51
--- NOTE | 2018-06-22 15:13 | Infectious Diseases Prog Note ---
Assessment/Plan Assessment/Plan Assessment: Colitis- probable Cdiff given recent hospital admission , despite of negative toxin test -CT abd/p: Extensive diffuse colonic wall thickening and infiltration of the pericolonic fat is consistent with colitis, nonspecific as regards etiology. Trace ascites fluid, possibly related to the above. Dilatation of the appendix, probably related to the above, but the possibility of appendicitis should also be considered. Solid 5 cm left adnexal mass. Recommend ultrasound for further evaluation. Right pleural effusion. Bilateral basilar pulmonary atelectatic changes and possible consolidation -Cdiff toxin a/b EIA neg -stool cx: normal fecal daniela Afebrile Leukocytosis, improving ESRF on HD MWF via R chest permacath dysphagia s/p GT Plan: -D.c empiric Zosyn #5 - cont empiric PO Vancomycin d# 4/10 for probable Cdiff despite neg toxin test -f.u cx -Monitor CBC/CMP, temperatures -f/u stool cx -GI f/u -aspiration precautions -HD cath care Subjective Allergies: Coded Allergies: No Known Allergies (Unverified , 06/18/18) Subjective afebrile wbc improving Objective Vital Signs Last 24 Hour Vital Signs Date Time Temp Pulse Resp B/P (MAP) Pulse Ox O2 Delivery O2 Flow Rate FiO2 06/22/18 12:00 97.5 78 18 125/66 (85) 98 06/22/18 08:30 Room Air 06/22/18 08:00 97.4 86 18 131/69 (89) 99 06/22/18 04:00 97.8 78 19 143/71 (95) 99 06/21/18 23:00 97.2 80 19 129/66 (87) 99 06/21/18 21:55 99 20 Room Air 21 06/21/18 21:00 Room Air 06/21/18 20:42 97.9 06/21/18 20:00 97.9 84 19 124/73 (90) 99 06/21/18 16:00 97.2 87 18 112/62 (79) 99 Height (Feet): 5 Height (Inches): 2.00 Weight (Pounds): 155 Objective General Appearance: WD/WN HEENT: normocephalic, atraumatic Respiratory/Chest: chest wall non-tender, lungs clear Breasts: no masses Cardiovascular: normal peripheral pulses Abdomen: normal bowel sounds, no organomegaly Genitourinary: normal external genitalia Skin: no rash Microbiology Date/Time Source Procedure Growth Status 06/20/18 00:40 Stool Stool Culture - Preliminary NO SALMONELLA,SHIGELLA,OR CAMPYLOBACT... Resulted 06/20/18 00:40 Stool Clostridium difficile Toxin Assay - Final Complete 06/19/18 16:15 Indwelling Cath Urine Culture - Final NO GROWTH AFTER 48 HOURS Complete Laboratory Tests Test 06/22/18 06:25 White Blood Count 11.7 K/UL (4.8-10.8) H Red Blood Count 3.56 M/UL (4.20-5.40) L Hemoglobin 10.2 G/DL (12.0-16.0) L Hematocrit 32.9 % (37.0-47.0) L Mean Corpuscular Volume 92 FL (80-99) Mean Corpuscular Hemoglobin 28.5 PG (27.0-31.0) Mean Corpuscular Hemoglobin Concent 30.9 G/DL (32.0-36.0) L Red Cell Distribution Width 18.7 % (11.6-14.8) H Platelet Count 373 K/UL (150-450) Mean Platelet Volume 7.1 FL (6.5-10.1) Neutrophils (%) (Auto) 68.1 % (45.0-75.0) Lymphocytes (%) (Auto) 21.1 % (20.0-45.0) Monocytes (%) (Auto) 7.6 % (1.0-10.0) Eosinophils (%) (Auto) 2.6 % (0.0-3.0) Basophils (%) (Auto) 0.6 % (0.0-2.0) Sodium Level 125 MMOL/L (136-145) L Potassium Level 4.7 MMOL/L (3.5-5.1) Chloride Level 90 MMOL/L (98-107) L Carbon Dioxide Level 22 MMOL/L (21-32) Anion Gap 13 mmol/L (5-15) Blood Urea Nitrogen 56 mg/dL (7-18) H Creatinine 7.2 MG/DL (0.55-1.30) H Estimat Glomerular Filtration Rate 5.8 mL/min (>60) Glucose Level 66 MG/DL (74-106) L Calcium Level 8.5 MG/DL (8.5-10.1) Phosphorus Level 4.6 MG/DL (2.5-4.9) Total Bilirubin 0.4 MG/DL (0.2-1.0) Aspartate Amino Transf (AST/SGOT) 14 U/L (15-37) L Alanine Aminotransferase (ALT/SGPT) 11 U/L (12-78) L Alkaline Phosphatase 102 U/L (46-116) C-Reactive Protein, Quantitative 17.2 mg/dL (0.00-0.90) H Total Protein 7.2 G/DL (6.4-8.2) Albumin 1.6 G/DL (3.4-5.0) L Globulin 5.6 g/dL Albumin/Globulin Ratio 0.3 (1.0-2.7) L Random Vancomycin Level 19.5 ug/mL Current Medications Medications (Trade) Dose Ordered Sig/Victoriano Route PRN Reason Start Time Stop Time Status Last Admin Dose Admin Acetaminophen (Tylenol) 650 mg Q4H PRN ORAL Fever 06/18/18 22:00 07/18/18 21:59 06/22/18 11:04 Albuterol/ Ipratropium (Albuterol/ Ipratropium) 3 ml EVERY 4 HOURS PRN HHN Shortness of Breath 06/18/18 22:00 06/23/18 21:59 Dextrose (Dextrose 50%) 25 ml Q30M PRN IV Hypoglycemia 06/18/18 22:00 07/18/18 21:59 Dextrose (Dextrose 50%) 50 ml Q30M PRN IV Hypoglycemia 06/18/18 22:00 07/18/18 21:59 Heparin Sodium (Porcine) (Heparin 5000 units/ml) 5,000 units EVERY 12 HOURS SUBQ 06/19/18 09:00 07/19/18 08:59 06/21/18 20:20 Ondansetron HCl (Zofran) 4 mg Q6H PRN IVP Nausea & Vomiting 06/18/18 22:00 07/18/18 21:59 06/20/18 18:17 Piperacillin Sod/ Tazobactam Sod 2.25 gm/Dextrose 55 ml @ 110 mls/hr Q8HR IVPB 06/19/18 15:00 06/24/18 14:59 06/22/18 06:27 Temazepam (Restoril) 15 mg HSPRN PRN ORAL Insomnia 06/18/18 22:00 06/25/18 21:59 Мария Dougherty M.D. Jun 22, 2018 15:12
[2018-06-22 16:00] VITALS: BP 102/56
[2018-06-22] MEDS ORDERED: NS 275ml ONE (16:28)
[2018-06-22] MEDS ORDERED: Tubing IV Secondary IV ONE (16:28)
--- NOTE | 2018-06-22 18:04 | Internal Med Progress Note ---
Subjective Date of Service: Jun 22, 2018 Physician Name Yunier Metcalf Attending Physician Benji Canas MD Current Medications Medications (Trade) Dose Ordered Sig/Victoriano Route PRN Reason Start Time Stop Time Status Last Admin Dose Admin Acetaminophen (Tylenol) 650 mg Q4H PRN ORAL Fever 06/18/18 22:00 07/18/18 21:59 06/22/18 11:04 Albuterol/ Ipratropium (Albuterol/ Ipratropium) 3 ml EVERY 4 HOURS PRN HHN Shortness of Breath 06/18/18 22:00 06/23/18 21:59 Dextrose (Dextrose 50%) 25 ml Q30M PRN IV Hypoglycemia 06/18/18 22:00 07/18/18 21:59 Dextrose (Dextrose 50%) 50 ml Q30M PRN IV Hypoglycemia 06/18/18 22:00 07/18/18 21:59 Heparin Sodium (Porcine) (Heparin 5000 units/ml) 5,000 units EVERY 12 HOURS SUBQ 06/19/18 09:00 07/19/18 08:59 06/21/18 20:20 Ondansetron HCl (Zofran) 4 mg Q6H PRN IVP Nausea & Vomiting 06/18/18 22:00 07/18/18 21:59 06/20/18 18:17 Temazepam (Restoril) 15 mg HSPRN PRN ORAL Insomnia 06/18/18 22:00 06/25/18 21:59 Vancomycin HCl (Firvanq) 125 mg FOUR TIMES A DAY ORAL 06/22/18 18:00 06/29/18 17:59 06/22/18 17:44 Allergies: Coded Allergies: No Known Allergies (Unverified , 06/18/18) ROS Limited/Unobtainable: No Constitutional: Reports: no symptoms HEENT: Reports: no symptoms Cardiovascular: Reports: no symptoms Respiratory: Reports: no symptoms Gastrointestinal/Abdominal: Reports: diarrhea Genitourinary: Reports: no symptoms Neurologic/Psychiatric: Reports: no symptoms Subjective 57 YO F admitted with abdominal pain and diarrhea. Cover for Sandra Avina-Dr Canas. Objective Last Vital Signs Date Time Temp Pulse Resp B/P (MAP) Pulse Ox O2 Delivery O2 Flow Rate FiO2 06/22/18 16:00 98.0 72 18 102/56 (71) 98 06/22/18 08:30 Room Air 06/21/18 21:55 21 Laboratory Tests Test 06/22/18 06:25 White Blood Count 11.7 K/UL (4.8-10.8) H Red Blood Count 3.56 M/UL (4.20-5.40) L Hemoglobin 10.2 G/DL (12.0-16.0) L Hematocrit 32.9 % (37.0-47.0) L Mean Corpuscular Volume 92 FL (80-99) Mean Corpuscular Hemoglobin 28.5 PG (27.0-31.0) Mean Corpuscular Hemoglobin Concent 30.9 G/DL (32.0-36.0) L Red Cell Distribution Width 18.7 % (11.6-14.8) H Platelet Count 373 K/UL (150-450) Mean Platelet Volume 7.1 FL (6.5-10.1) Neutrophils (%) (Auto) 68.1 % (45.0-75.0) Lymphocytes (%) (Auto) 21.1 % (20.0-45.0) Monocytes (%) (Auto) 7.6 % (1.0-10.0) Eosinophils (%) (Auto) 2.6 % (0.0-3.0) Basophils (%) (Auto) 0.6 % (0.0-2.0) Sodium Level 125 MMOL/L (136-145) L Potassium Level 4.7 MMOL/L (3.5-5.1) Chloride Level 90 MMOL/L (98-107) L Carbon Dioxide Level 22 MMOL/L (21-32) Anion Gap 13 mmol/L (5-15) Blood Urea Nitrogen 56 mg/dL (7-18) H Creatinine 7.2 MG/DL (0.55-1.30) H Estimat Glomerular Filtration Rate 5.8 mL/min (>60) Glucose Level 66 MG/DL (74-106) L Calcium Level 8.5 MG/DL (8.5-10.1) Phosphorus Level 4.6 MG/DL (2.5-4.9) Total Bilirubin 0.4 MG/DL (0.2-1.0) Aspartate Amino Transf (AST/SGOT) 14 U/L (15-37) L Alanine Aminotransferase (ALT/SGPT) 11 U/L (12-78) L Alkaline Phosphatase 102 U/L (46-116) C-Reactive Protein, Quantitative 17.2 mg/dL (0.00-0.90) H Total Protein 7.2 G/DL (6.4-8.2) Albumin 1.6 G/DL (3.4-5.0) L Globulin 5.6 g/dL Albumin/Globulin Ratio 0.3 (1.0-2.7) L Random Vancomycin Level 19.5 ug/mL Microbiology Date/Time Source Procedure Growth Status 06/20/18 00:40 Stool Stool Culture - Preliminary NO SALMONELLA,SHIGELLA,OR CAMPYLOBACT... Resulted 06/20/18 00:40 Stool Clostridium difficile Toxin Assay - Final Complete Intake and Output 06/21/18 06/22/18 19:00 07:00 Intake Total 55 ml 310 ml Balance 55 ml 310 ml Intake Oral 200 ml IV Total 55 ml 110 ml # Voids 2 1 # Bowel Movements 1 4 Objective PHYSICAL EXAMINATION: VITAL SIGNS: On admission, temperature 98.2, pulse of 82, respirations 18, and blood pressure 126/66. GENERAL: The patient is awake, responsive, in no acute distress. HEAD AND NECK: Pupils equal and reactive to light. Extraocular movements are intact. NECK: Supple. No JVD. Tracheostomy site was noted. Well-healed scar. CHEST: Chest wall has right-sided PermCath. No sign of infection. LUNGS: Chest has bilateral air entry. No wheezes or rhonchi. HEART: S1 and S2. Regular rhythm. No gallops. ABDOMEN: Soft. Generalized tenderness. No rebound tenderness. No fluid shift. PEG site is clean. EXTREMITIES: No cyanosis, clubbing, or edema. NEUROLOGIC: Cranial nerves II through XII grossly intact. Motor is 5/5 in all extremities. Gait was not assessed due to the patient's status Assessment/Plan Assessment/Plan ASSESSMENT: 1. Abdominal pain, most likely secondary to an acute colitis. 2. Pelvic mass. 3. End-stage renal disease, on hemodialysis. 4. Hypertension. 5. Dysphagia, status post PEG. 6. C. Diff neg-see ID note. PLAN: Admit the patient to medical floor. Continue antibiotic with oral vancomycin (despite neg C.Diff) and Zosyn per ID. Follow up with Dr. Berry from Nephrology, Dr. Tanner from Pulmonary Critical Care Dr. Dougherty from Infectious Disease. Code status is Full Code. DVT prophylaxis, heparin subcutaneous. Hemodialysis 06/22/18 Yunier Metcalf MD Jun 22, 2018 18:04
[2018-06-22 20:00] VITALS: BP 122/73
[2018-06-22] MEDS: Lomotil 2.5mg tab ORAL PRN (21:24)
[2018-06-23] VITALS (7 sets, daily range): BP systolic 114–142; BP diastolic 55–80
[2018-06-23 07:30] LABS: BASOPHILS % (AUTO) 0.7 % (0.0-2.0); EOSINOPHILS % (AUTO) 1.4 % (0.0-3.0); HEMATOCRIT 31.2 % (37.0-47.0); HEMOGLOBIN 9.3 G/DL (12.0-16.0); LYMPHOCYTES % (AUTO) 26.5 % (20.0-45.0); MEAN CORPUSCULAR VOLUME 94 FL (80-99); MONOCYTES % (AUTO) 8.9 % (1.0-10.0); NEUTROPHILS % (AUTO) 62.6 % (45.0-75.0); PLATELET COUNT 405 K/UL (150-450); RED BLOOD COUNT 3.33 M/UL (4.20-5.40); RED CELL DISTRIBUTION WIDTH 18.7 % (11.6-14.8); WHITE BLOOD COUNT 9.2 K/UL (4.8-10.8)
[2018-06-23 07:50] LABS: ALANINE AMINOTRANSFERASE 10 U/L (12-78); ALBUMIN 1.6 G/DL (3.4-5.0); ALBUMIN/GLOBULIN RATIO 0.3 (1.0-2.7); ALKALINE PHOSPHATASE 97 U/L (46-116); ANION GAP 7 mmol/L (5-15); ASPARTATE AMINO TRANSFERASE 15 U/L (15-37); BILIRUBIN,TOTAL 0.3 MG/DL (0.2-1.0); BLOOD UREA NITROGEN 28 mg/dL (7-18); CARBON DIOXIDE 31 MMOL/L (21-32); CHLORIDE 97 MMOL/L (98-107); CREATININE 4.7 MG/DL (0.55-1.30); PHOSPHORUS 3.3 MG/DL (2.5-4.9); SODIUM 135 MMOL/L (136-145)
[2018-06-23] MEDS: Vancomycin oral 125mg/2.5ml ORAL SCH ×4 (09:00→20:35)
[2018-06-23] MEDS: Lomotil 2.5mg tab ORAL PRN (09:00)
[2018-06-23] MEDS: Heparin 5000 units/ml inj SUBQ SCH ×2 (09:01→20:37)
--- NOTE | 2018-06-23 09:01 | General Progress Note ---
Assessment/Plan Problem List: (1) Diarrhea ICD Codes: R19.7 - Diarrhea, unspecified SNOMED: 52552454 (2) ESRD needing dialysis ICD Codes: N18.6 - End stage renal disease; Z99.2 - Dependence on renal dialysis SNOMED: 82126824 (3) Anemia in chronic kidney disease (CKD) ICD Codes: N18.9 - Chronic kidney disease, unspecified; D63.1 - Anemia in chronic kidney disease SNOMED: 784583937 Assessment/Plan off protonix and miralax prn lomotil GT was removed yesterday neg C.diff on po vanco per ID fu labs patient refused colonoscopy today Subjective ROS Limited/Unobtainable: Yes Allergies: Coded Allergies: No Known Allergies (Unverified , 06/18/18) Subjective diarrhea Objective Last 24 Hour Vital Signs Date Time Temp Pulse Resp B/P (MAP) Pulse Ox O2 Delivery O2 Flow Rate FiO2 06/23/18 03:52 98.4 92 15 114/65 (81) 06/23/18 02:18 98 16 Room Air 21 06/23/18 00:00 97.9 84 142/67 (92) 06/22/18 21:00 Room Air 06/22/18 20:00 98.9 102 17 122/73 (89) 06/22/18 16:00 98.0 72 18 102/56 (71) 98 06/22/18 12:00 97.5 78 18 125/66 (85) 98 Intake and Output 06/22/18 06/23/18 19:00 07:00 Intake Total 480 ml Output Total 1000 ml Balance -520 ml Intake Oral 480 ml Hemodialysis UF 1000 ml # Voids 4 3 # Bowel Movements 6 Laboratory Tests 06/23/18 06:50: White Blood Count 9.2, Red Blood Count 3.33L, Hemoglobin 9.3L, Hematocrit 31.2L , Mean Corpuscular Volume 94, Mean Corpuscular Hemoglobin 28.1, Mean Corpuscular Hemoglobin Concent 30.0L, Red Cell Distribution Width 18.7H, Platelet Count 405, Mean Platelet Volume 6.3L, Neutrophils (%) (Auto) 62.6, Lymphocytes (%) (Auto) 26.5, Monocytes (%) (Auto) 8.9, Eosinophils (%) (Auto) 1.4, Basophils (%) (Auto) 0.7, Sodium Level 135L, Potassium Level 4.0, Chloride Level 97L, Carbon Dioxide Level 31, Anion Gap 7, Blood Urea Nitrogen 28H, Creatinine 4.7H, Estimat Glomerular Filtration Rate 9.5, Glucose Level 68L, Calcium Level 8.0L, Phosphorus Level 3.3, Magnesium Level 1.7L, Total Bilirubin 0.3, Aspartate Amino Transf (AST/SGOT) 15, Alanine Aminotransferase (ALT/SGPT) 10L, Alkaline Phosphatase 97, Total Protein 7.1, Albumin 1.6L, Globulin 5.5, Albumin/Globulin Ratio 0.3L Height (Feet): 5 Height (Inches): 2.00 Weight (Pounds): 155 General Appearance: alert EENT: normal ENT inspection Neck: supple Cardiovascular: normal rate Respiratory/Chest: lungs clear Abdomen: soft, decreased bowel sounds, tender Extremities: non-tender Theron Casiano MD Jun 23, 2018 09:01
--- NOTE | 2018-06-23 12:41 | Pulmonology Progress Note ---
Assessment/Plan Problems: (1) Colitis (2) ESRD needing dialysis Assessment/Plan doing better gtube was removed watch wbc check electrolytes HD by [facility] Subjective ROS Limited/Unobtainable: No Constitutional: Reports: no symptoms HEENT: Repors: no symptoms Respiratory: Reports: no symptoms Allergies: Coded Allergies: No Known Allergies (Unverified , 06/18/18) Objective Last 24 Hour Vital Signs Date Time Temp Pulse Resp B/P (MAP) Pulse Ox O2 Delivery O2 Flow Rate FiO2 06/23/18 08:30 Room Air 06/23/18 08:00 96.1 68 18 122/55 (77) 98 06/23/18 03:52 98.4 92 15 114/65 (81) 06/23/18 02:18 98 16 Room Air 21 06/23/18 00:00 97.9 84 142/67 (92) 06/22/18 21:00 Room Air 06/22/18 20:00 98.9 102 17 122/73 (89) 06/22/18 16:00 98.0 72 18 102/56 (71) 98 Intake and Output 06/22/18 06/23/18 19:00 07:00 Intake Total 480 ml Output Total 1000 ml Balance -520 ml Intake Oral 480 ml Hemodialysis UF 1000 ml # Voids 4 3 # Bowel Movements 6 General Appearance: WD/WN HEENT: normocephalic, mucous membranes moist, PERRL Respiratory/Chest: chest wall non-tender, lungs clear Abdomen: normal bowel sounds, soft, non tender Extremities: no cyanosis Skin: no rash Laboratory Tests 06/23/18 06:50: White Blood Count 9.2, Red Blood Count 3.33L, Hemoglobin 9.3L, Hematocrit 31.2L , Mean Corpuscular Volume 94, Mean Corpuscular Hemoglobin 28.1, Mean Corpuscular Hemoglobin Concent 30.0L, Red Cell Distribution Width 18.7H, Platelet Count 405, Mean Platelet Volume 6.3L, Neutrophils (%) (Auto) 62.6, Lymphocytes (%) (Auto) 26.5, Monocytes (%) (Auto) 8.9, Eosinophils (%) (Auto) 1.4, Basophils (%) (Auto) 0.7, Sodium Level 135L, Potassium Level 4.0, Chloride Level 97L, Carbon Dioxide Level 31, Anion Gap 7, Blood Urea Nitrogen 28H, Creatinine 4.7H, Estimat Glomerular Filtration Rate 9.5, Glucose Level 68L, Calcium Level 8.0L, Phosphorus Level 3.3, Magnesium Level 1.7L, Total Bilirubin 0.3, Aspartate Amino Transf (AST/SGOT) 15, Alanine Aminotransferase (ALT/SGPT) 10L, Alkaline Phosphatase 97, Total Protein 7.1, Albumin 1.6L, Globulin 5.5, Albumin/Globulin Ratio 0.3L Current Medications Medications (Trade) Dose Ordered Sig/Victoriano Route PRN Reason Start Time Stop Time Status Last Admin Dose Admin Acetaminophen (Tylenol) 650 mg Q4H PRN ORAL Fever 06/18/18 22:00 07/18/18 21:59 06/22/18 11:04 Albuterol/ Ipratropium (Albuterol/ Ipratropium) 3 ml EVERY 4 HOURS PRN HHN Shortness of Breath 06/18/18 22:00 06/23/18 21:59 Dextrose (Dextrose 50%) 25 ml Q30M PRN IV Hypoglycemia 06/18/18 22:00 07/18/18 21:59 Dextrose (Dextrose 50%) 50 ml Q30M PRN IV Hypoglycemia 06/18/18 22:00 07/18/18 21:59 Diphenoxylate HCl/ Atropine (Lomotil) 2.5 mg Q6H PRN ORAL Diarrhea 06/22/18 21:15 07/22/18 21:14 06/23/18 09:00 Heparin Sodium (Porcine) (Heparin 5000 units/ml) 5,000 units EVERY 12 HOURS SUBQ 06/19/18 09:00 07/19/18 08:59 06/23/18 09:01 Ondansetron HCl (Zofran) 4 mg Q6H PRN IVP Nausea & Vomiting 06/18/18 22:00 07/18/18 21:59 06/20/18 18:17 Temazepam (Restoril) 15 mg HSPRN PRN ORAL Insomnia 06/18/18 22:00 06/25/18 21:59 Vancomycin HCl (Firvanq) 125 mg FOUR TIMES A DAY ORAL 06/22/18 18:00 06/29/18 17:59 06/23/18 09:00 Anupama Tanner MD Jun 23, 2018 12:41
[2018-06-23] MEDS ORDERED: VANCOMYCIN250 MG/5 M ORAL (12:42)
--- NOTE | 2018-06-23 13:03 | Nephrology Progress Note ---
Assessment/Plan Problem List: (1) ESRD needing dialysis (2) Colitis (3) Anemia in chronic kidney disease (CKD) Assessment Abdominal pain - Colitis ESRD Has GT tube ! but taaking PO Anemia Leukocytosis ? Cath infection Plan DC figueroa- on Renal diet HD 06/22 UA and c/s HD as needed- [facility], now on Zosyn Subjective ROS Limited/Unobtainable: No Objective Objective Last 24 Hour Vital Signs Date Time Temp Pulse Resp B/P (MAP) Pulse Ox O2 Delivery O2 Flow Rate FiO2 06/23/18 12:00 97.2 74 18 134/80 (98) 97 06/23/18 08:30 Room Air 06/23/18 08:00 96.1 68 18 122/55 (77) 98 06/23/18 03:52 98.4 92 15 114/65 (81) 06/23/18 02:18 98 16 Room Air 21 06/23/18 00:00 97.9 84 142/67 (92) 06/22/18 21:00 Room Air 06/22/18 20:00 98.9 102 17 122/73 (89) 06/22/18 16:00 98.0 72 18 102/56 (71) 98 Intake and Output 06/22/18 06/23/18 19:00 07:00 Intake Total 480 ml Output Total 1000 ml Balance -520 ml Intake Oral 480 ml Hemodialysis UF 1000 ml # Voids 4 3 # Bowel Movements 6 Laboratory Tests 06/23/18 06:50: White Blood Count 9.2, Red Blood Count 3.33L, Hemoglobin 9.3L, Hematocrit 31.2L , Mean Corpuscular Volume 94, Mean Corpuscular Hemoglobin 28.1, Mean Corpuscular Hemoglobin Concent 30.0L, Red Cell Distribution Width 18.7H, Platelet Count 405, Mean Platelet Volume 6.3L, Neutrophils (%) (Auto) 62.6, Lymphocytes (%) (Auto) 26.5, Monocytes (%) (Auto) 8.9, Eosinophils (%) (Auto) 1.4, Basophils (%) (Auto) 0.7, Sodium Level 135L, Potassium Level 4.0, Chloride Level 97L, Carbon Dioxide Level 31, Anion Gap 7, Blood Urea Nitrogen 28H, Creatinine 4.7H, Estimat Glomerular Filtration Rate 9.5, Glucose Level 68L, Calcium Level 8.0L, Phosphorus Level 3.3, Magnesium Level 1.7L, Total Bilirubin 0.3, Aspartate Amino Transf (AST/SGOT) 15, Alanine Aminotransferase (ALT/SGPT) 10L, Alkaline Phosphatase 97, Total Protein 7.1, Albumin 1.6L, Globulin 5.5, Albumin/Globulin Ratio 0.3L Height (Feet): 5 Height (Inches): 2.00 Weight (Pounds): 155 Cardiovascular: normal rate Respiratory/Chest: lungs clear Abdomen: distended Objective no change Anish Berry MD Jun 23, 2018 13:03
--- NOTE | 2018-06-23 16:49 | Infectious Diseases Prog Note ---
Assessment/Plan Assessment/Plan Assessment: Colitis- probable Cdiff given recent hospital admission , despite of negative toxin test -CT abd/p: Extensive diffuse colonic wall thickening and infiltration of the pericolonic fat is consistent with colitis, nonspecific as regards etiology. Trace ascites fluid, possibly related to the above. Dilatation of the appendix, probably related to the above, but the possibility of appendicitis should also be considered. Solid 5 cm left adnexal mass. Recommend ultrasound for further evaluation. Right pleural effusion. Bilateral basilar pulmonary atelectatic changes and possible consolidation -Cdiff toxin a/b EIA neg -stool cx: normal fecal daniela Afebrile Leukocytosis, SP ESRF on HD MWF via R chest permacath dysphagia s/p GT Plan: - cont empiric PO Vancomycin d# 5/ for probable Cdiff despite neg toxin test -06/22 SP Zosyn #5 -f.u cx -Monitor CBC/CMP, temperatures -f/u stool cx -GI f/u -aspiration precautions -HD cath care Subjective Allergies: Coded Allergies: No Known Allergies (Unverified , 06/18/18) Subjective afebrile leukocytosis resolved Objective Vital Signs Last 24 Hour Vital Signs Date Time Temp Pulse Resp B/P (MAP) Pulse Ox O2 Delivery O2 Flow Rate FiO2 06/23/18 12:00 97.2 74 18 134/80 (98) 97 06/23/18 10:11 88 16 Room Air 21 06/23/18 08:30 Room Air 06/23/18 08:00 96.1 68 18 122/55 (77) 98 06/23/18 03:52 98.4 92 15 114/65 (81) 06/23/18 02:18 98 16 Room Air 21 06/23/18 00:00 97.9 84 142/67 (92) 06/22/18 21:00 Room Air 06/22/18 20:00 98.9 102 17 122/73 (89) Height (Feet): 5 Height (Inches): 2.00 Weight (Pounds): 155 Objective General Appearance: WD/WN HEENT: normocephalic, atraumatic Respiratory/Chest: chest wall non-tender, lungs clear Breasts: no masses Cardiovascular: normal peripheral pulses Abdomen: normal bowel sounds, no organomegaly Genitourinary: normal external genitalia Skin: no rash Laboratory Tests Test 06/23/18 06:50 White Blood Count 9.2 K/UL (4.8-10.8) Red Blood Count 3.33 M/UL (4.20-5.40) L Hemoglobin 9.3 G/DL (12.0-16.0) L Hematocrit 31.2 % (37.0-47.0) L Mean Corpuscular Volume 94 FL (80-99) Mean Corpuscular Hemoglobin 28.1 PG (27.0-31.0) Mean Corpuscular Hemoglobin Concent 30.0 G/DL (32.0-36.0) L Red Cell Distribution Width 18.7 % (11.6-14.8) H Platelet Count 405 K/UL (150-450) Mean Platelet Volume 6.3 FL (6.5-10.1) L Neutrophils (%) (Auto) 62.6 % (45.0-75.0) Lymphocytes (%) (Auto) 26.5 % (20.0-45.0) Monocytes (%) (Auto) 8.9 % (1.0-10.0) Eosinophils (%) (Auto) 1.4 % (0.0-3.0) Basophils (%) (Auto) 0.7 % (0.0-2.0) Sodium Level 135 MMOL/L (136-145) L Potassium Level 4.0 MMOL/L (3.5-5.1) Chloride Level 97 MMOL/L (98-107) L Carbon Dioxide Level 31 MMOL/L (21-32) Anion Gap 7 mmol/L (5-15) Blood Urea Nitrogen 28 mg/dL (7-18) H Creatinine 4.7 MG/DL (0.55-1.30) H Estimat Glomerular Filtration Rate 9.5 mL/min (>60) Glucose Level 68 MG/DL (74-106) L Calcium Level 8.0 MG/DL (8.5-10.1) L Phosphorus Level 3.3 MG/DL (2.5-4.9) Magnesium Level 1.7 MG/DL (1.8-2.4) L Total Bilirubin 0.3 MG/DL (0.2-1.0) Aspartate Amino Transf (AST/SGOT) 15 U/L (15-37) Alanine Aminotransferase (ALT/SGPT) 10 U/L (12-78) L Alkaline Phosphatase 97 U/L (46-116) Total Protein 7.1 G/DL (6.4-8.2) Albumin 1.6 G/DL (3.4-5.0) L Globulin 5.5 g/dL Albumin/Globulin Ratio 0.3 (1.0-2.7) L Hepatitis A IgM Antibody Pending Hepatitis B Surface Antigen Pending Hepatitis B Core IgM Antibody Pending Hepatitis C Antibody Pending Current Medications Medications (Trade) Dose Ordered Sig/Victoriano Route PRN Reason Start Time Stop Time Status Last Admin Dose Admin Acetaminophen (Tylenol) 650 mg Q4H PRN ORAL Fever 06/18/18 22:00 07/18/18 21:59 06/22/18 11:04 Albuterol/ Ipratropium (Albuterol/ Ipratropium) 3 ml EVERY 4 HOURS PRN HHN Shortness of Breath 06/18/18 22:00 06/23/18 21:59 Dextrose (Dextrose 50%) 25 ml Q30M PRN IV Hypoglycemia 06/18/18 22:00 07/18/18 21:59 Dextrose (Dextrose 50%) 50 ml Q30M PRN IV Hypoglycemia 06/18/18 22:00 07/18/18 21:59 Diphenoxylate HCl/ Atropine (Lomotil) 2.5 mg Q6H PRN ORAL Diarrhea 06/22/18 21:15 07/22/18 21:14 06/23/18 09:00 Heparin Sodium (Porcine) (Heparin 5000 units/ml) 5,000 units EVERY 12 HOURS SUBQ 06/19/18 09:00 07/19/18 08:59 06/23/18 09:01 Ondansetron HCl (Zofran) 4 mg Q6H PRN IVP Nausea & Vomiting 06/18/18 22:00 07/18/18 21:59 06/20/18 18:17 Temazepam (Restoril) 15 mg HSPRN PRN ORAL Insomnia 06/18/18 22:00 06/25/18 21:59 Vancomycin HCl (Firvanq) 125 mg FOUR TIMES A DAY ORAL 06/22/18 18:00 06/29/18 17:59 06/23/18 14:45 Мария Dougherty M.D. Jun 23, 2018 16:49
--- NOTE | 2018-06-23 18:08 | Internal Med Progress Note ---
Subjective Date of Service: Jun 23, 2018 Physician Name Yunier Metcalf Attending Physician Benji Canas MD Current Medications Medications (Trade) Dose Ordered Sig/Victoriano Route PRN Reason Start Time Stop Time Status Last Admin Dose Admin Acetaminophen (Tylenol) 650 mg Q4H PRN ORAL Fever 06/18/18 22:00 07/18/18 21:59 06/22/18 11:04 Albuterol/ Ipratropium (Albuterol/ Ipratropium) 3 ml EVERY 4 HOURS PRN HHN Shortness of Breath 06/18/18 22:00 06/23/18 21:59 Dextrose (Dextrose 50%) 25 ml Q30M PRN IV Hypoglycemia 06/18/18 22:00 07/18/18 21:59 Dextrose (Dextrose 50%) 50 ml Q30M PRN IV Hypoglycemia 06/18/18 22:00 07/18/18 21:59 Diphenoxylate HCl/ Atropine (Lomotil) 2.5 mg Q6H PRN ORAL Diarrhea 06/22/18 21:15 07/22/18 21:14 06/23/18 09:00 Heparin Sodium (Porcine) (Heparin 5000 units/ml) 5,000 units EVERY 12 HOURS SUBQ 06/19/18 09:00 07/19/18 08:59 06/23/18 09:01 Ondansetron HCl (Zofran) 4 mg Q6H PRN IVP Nausea & Vomiting 06/18/18 22:00 07/18/18 21:59 06/20/18 18:17 Temazepam (Restoril) 15 mg HSPRN PRN ORAL Insomnia 06/18/18 22:00 06/25/18 21:59 Vancomycin HCl (Firvanq) 125 mg FOUR TIMES A DAY ORAL 06/22/18 18:00 06/29/18 17:59 06/23/18 14:45 Allergies: Coded Allergies: No Known Allergies (Unverified , 06/18/18) ROS Limited/Unobtainable: No Constitutional: Reports: no symptoms HEENT: Reports: no symptoms Cardiovascular: Reports: no symptoms Respiratory: Reports: no symptoms Gastrointestinal/Abdominal: Reports: no symptoms Genitourinary: Reports: no symptoms Neurologic/Psychiatric: Reports: no symptoms Subjective 57 YO F admitted with abdominal pain and diarrhea. Cover for Int Med-Dr Canas. Objective Last Vital Signs Date Time Temp Pulse Resp B/P (MAP) Pulse Ox O2 Delivery O2 Flow Rate FiO2 06/23/18 16:00 98.7 89 18 133/63 (86) 98 06/23/18 10:11 Room Air 21 Laboratory Tests Test 06/23/18 06:50 White Blood Count 9.2 K/UL (4.8-10.8) Red Blood Count 3.33 M/UL (4.20-5.40) L Hemoglobin 9.3 G/DL (12.0-16.0) L Hematocrit 31.2 % (37.0-47.0) L Mean Corpuscular Volume 94 FL (80-99) Mean Corpuscular Hemoglobin 28.1 PG (27.0-31.0) Mean Corpuscular Hemoglobin Concent 30.0 G/DL (32.0-36.0) L Red Cell Distribution Width 18.7 % (11.6-14.8) H Platelet Count 405 K/UL (150-450) Mean Platelet Volume 6.3 FL (6.5-10.1) L Neutrophils (%) (Auto) 62.6 % (45.0-75.0) Lymphocytes (%) (Auto) 26.5 % (20.0-45.0) Monocytes (%) (Auto) 8.9 % (1.0-10.0) Eosinophils (%) (Auto) 1.4 % (0.0-3.0) Basophils (%) (Auto) 0.7 % (0.0-2.0) Sodium Level 135 MMOL/L (136-145) L Potassium Level 4.0 MMOL/L (3.5-5.1) Chloride Level 97 MMOL/L (98-107) L Carbon Dioxide Level 31 MMOL/L (21-32) Anion Gap 7 mmol/L (5-15) Blood Urea Nitrogen 28 mg/dL (7-18) H Creatinine 4.7 MG/DL (0.55-1.30) H Estimat Glomerular Filtration Rate 9.5 mL/min (>60) Glucose Level 68 MG/DL (74-106) L Calcium Level 8.0 MG/DL (8.5-10.1) L Phosphorus Level 3.3 MG/DL (2.5-4.9) Magnesium Level 1.7 MG/DL (1.8-2.4) L Total Bilirubin 0.3 MG/DL (0.2-1.0) Aspartate Amino Transf (AST/SGOT) 15 U/L (15-37) Alanine Aminotransferase (ALT/SGPT) 10 U/L (12-78) L Alkaline Phosphatase 97 U/L (46-116) Total Protein 7.1 G/DL (6.4-8.2) Albumin 1.6 G/DL (3.4-5.0) L Globulin 5.5 g/dL Albumin/Globulin Ratio 0.3 (1.0-2.7) L Hepatitis A IgM Antibody Pending Hepatitis B Surface Antigen Pending Hepatitis B Core IgM Antibody Pending Hepatitis C Antibody Pending Intake and Output 06/22/18 06/23/18 19:00 07:00 Intake Total 480 ml Output Total 1000 ml Balance -520 ml Intake Oral 480 ml Hemodialysis UF 1000 ml # Voids 4 3 # Bowel Movements 6 Objective PHYSICAL EXAMINATION: VITAL SIGNS: On admission, temperature 98.2, pulse of 82, respirations 18, and blood pressure 126/66. GENERAL: The patient is awake, responsive, in no acute distress. HEAD AND NECK: Pupils equal and reactive to light. Extraocular movements are intact. NECK: Supple. No JVD. Tracheostomy site was noted. Well-healed scar. CHEST: Chest wall has right-sided PermCath. No sign of infection. LUNGS: Chest has bilateral air entry. No wheezes or rhonchi. HEART: S1 and S2. Regular rhythm. No gallops. ABDOMEN: Soft. Generalized tenderness. No rebound tenderness. No fluid shift. PEG site is clean. EXTREMITIES: No cyanosis, clubbing, or edema. NEUROLOGIC: Cranial nerves II through XII grossly intact. Motor is 5/5 in all extremities. Gait was not assessed due to the patient's status Assessment/Plan Assessment/Plan ASSESSMENT: 1. Abdominal pain, most likely secondary to an acute colitis. 2. Pelvic mass. 3. End-stage renal disease, on hemodialysis. 4. Hypertension. 5. Dysphagia, status post PEG. 6. C. Diff neg-see ID note. PLAN: Admit the patient to medical floor. Continue antibiotic with oral vancomycin (despite neg C.Diff) and Zosyn per ID. Follow up with Dr. Berry from Nephrology, Dr. Tanner from Pulmonary Critical Care Dr. Dougherty from Infectious Disease. Code status is Full Code. DVT prophylaxis, heparin subcutaneous. Hemodialysis 06/22/18 D/C home today 06/23/18 Yunier Metcalf MD Jun 23, 2018 18:08
[2018-06-24] VITALS: BP 140/63
[2018-06-24 04:00] VITALS: BP 127/85
[2018-06-24 08:00] VITALS: BP 137/76
[2018-06-24] MEDS: Heparin 5000 units/ml inj SUBQ SCH (08:31)
[2018-06-24] MEDS: Vancomycin oral 125mg/2.5ml ORAL SCH ×3 (08:32→18:55)
--- NOTE | 2018-06-24 09:41 | General Progress Note ---
Assessment/Plan Problem List: (1) Diarrhea ICD Codes: R19.7 - Diarrhea, unspecified SNOMED: 61126727 (2) ESRD needing dialysis ICD Codes: N18.6 - End stage renal disease; Z99.2 - Dependence on renal dialysis SNOMED: 34933130 (3) Anemia in chronic kidney disease (CKD) ICD Codes: N18.9 - Chronic kidney disease, unspecified; D63.1 - Anemia in chronic kidney disease SNOMED: 356355188 Assessment/Plan off protonix and miralax prn lomotil>>> will dc for colonoscopy GT has been removed neg C.diff on po vanco per ID fu labs plan colonoscopy for tomorrow patient agreed Subjective ROS Limited/Unobtainable: Yes Allergies: Coded Allergies: No Known Allergies (Unverified , 06/18/18) Subjective diarrhea Objective Last 24 Hour Vital Signs Date Time Temp Pulse Resp B/P (MAP) Pulse Ox O2 Delivery O2 Flow Rate FiO2 06/24/18 08:15 Room Air 06/24/18 08:00 97.7 94 16 137/76 (96) 97 06/24/18 07:50 94 16 Room Air 21 06/24/18 04:00 98.7 87 18 127/85 (99) 06/24/18 00:00 98.2 86 18 140/63 (88) 06/23/18 22:59 98.2 86 20 140/63 (88) 06/23/18 21:00 Room Air 06/23/18 20:00 97.7 96 20 123/74 (90) 06/23/18 19:53 93 16 Room Air 21 06/23/18 16:00 98.7 89 18 133/63 (86) 98 06/23/18 12:00 97.2 74 18 134/80 (98) 97 06/23/18 10:11 88 16 Room Air 21 Intake and Output 06/23/18 06/24/18 18:59 06:59 Intake Total 1100 ml Output Total 1900 ml Balance -800 ml Intake Oral 1100 ml Output Urine Total 1900 ml # Voids 3 # Bowel Movements 1 Height (Feet): 5 Height (Inches): 2.00 Weight (Pounds): 155 General Appearance: alert EENT: normal ENT inspection Neck: supple Cardiovascular: normal rate Respiratory/Chest: lungs clear Abdomen: soft, decreased bowel sounds, tender Extremities: non-tender Theron Casiano MD Jun 24, 2018 09:41
[2018-06-24 12:00] VITALS: BP 129/66
--- NOTE | 2018-06-24 12:46 | Internal Med Progress Note ---
Subjective Date of Service: Jun 24, 2018 Physician Name Yunier Metcalf Attending Physician Benji Canas MD Current Medications Medications (Trade) Dose Ordered Sig/Victoriano Route PRN Reason Start Time Stop Time Status Last Admin Dose Admin Acetaminophen (Tylenol) 650 mg Q4H PRN ORAL Fever 06/18/18 22:00 07/18/18 21:59 06/23/18 21:15 Dextrose (Dextrose 50%) 25 ml Q30M PRN IV Hypoglycemia 06/18/18 22:00 07/18/18 21:59 Dextrose (Dextrose 50%) 50 ml Q30M PRN IV Hypoglycemia 06/18/18 22:00 07/18/18 21:59 Dextrose/ Electrolytes 1,000 ml @ 75 mls/hr [id number] IV 06/24/18 16:00 07/24/18 15:59 Diphenoxylate HCl/ Atropine (Lomotil) 2.5 mg Q6H PRN ORAL Diarrhea 06/22/18 21:15 07/22/18 21:14 06/23/18 09:00 Heparin Sodium (Porcine) (Heparin 5000 units/ml) 5,000 units EVERY 12 HOURS SUBQ 06/19/18 09:00 07/19/18 08:59 06/24/18 08:31 Ondansetron HCl (Zofran) 4 mg Q6H PRN IVP Nausea & Vomiting 06/18/18 22:00 07/18/18 21:59 06/20/18 18:17 Polyethylene Glycol/ Electrolytes (Nulytely) 4,000 ml ONCE ORAL 06/24/18 16:00 06/24/18 23:59 Temazepam (Restoril) 15 mg HSPRN PRN ORAL Insomnia 06/18/18 22:00 06/25/18 21:59 Vancomycin HCl (Firvanq) 125 mg FOUR TIMES A DAY ORAL 06/22/18 18:00 06/29/18 17:59 06/24/18 12:26 Allergies: Coded Allergies: No Known Allergies (Unverified , 06/18/18) ROS Limited/Unobtainable: Yes Subjective 57 YO F admitted with abdominal pain and diarrhea. Cover for Int Med-Dr Canas. Discharge 06/23/18 held-family requests SNF placement Objective Last Vital Signs Date Time Temp Pulse Resp B/P (MAP) Pulse Ox O2 Delivery O2 Flow Rate FiO2 06/24/18 12:00 98.6 95 16 129/66 (87) 95 06/24/18 08:15 Room Air 06/24/18 07:50 21 Intake and Output 06/23/18 06/24/18 19:00 07:00 Intake Total 1100 ml Output Total 1900 ml Balance -800 ml Intake Oral 1100 ml Output Urine Total 1900 ml # Voids 3 # Bowel Movements 1 Objective PHYSICAL EXAMINATION: VITAL SIGNS: On admission, temperature 98.2, pulse of 82, respirations 18, and blood pressure 126/66. GENERAL: The patient is awake, responsive, in no acute distress. HEAD AND NECK: Pupils equal and reactive to light. Extraocular movements are intact. NECK: Supple. No JVD. Tracheostomy site was noted. Well-healed scar. CHEST: Chest wall has right-sided PermCath. No sign of infection. LUNGS: Chest has bilateral air entry. No wheezes or rhonchi. HEART: S1 and S2. Regular rhythm. No gallops. ABDOMEN: Soft. Generalized tenderness. No rebound tenderness. No fluid shift. PEG site is clean. EXTREMITIES: No cyanosis, clubbing, or edema. NEUROLOGIC: Cranial nerves II through XII grossly intact. Motor is 5/5 in all extremities. Gait was not assessed due to the patient's status Assessment/Plan Assessment/Plan ASSESSMENT: 1. Abdominal pain, most likely secondary to an acute colitis. 2. Pelvic mass. 3. End-stage renal disease, on hemodialysis. 4. Hypertension. 5. Dysphagia, status post PEG. 6. C. Diff neg-see ID note. PLAN: Admit the patient to medical floor. Continue antibiotic with oral vancomycin (despite neg C.Diff) and Zosyn per ID. Follow up with Dr. Berry from Nephrology, Dr. Tanner from Pulmonary Critical Care Dr. Dougherty from Infectious Disease. Code status is Full Code. DVT prophylaxis, heparin subcutaneous. Hemodialysis 06/22/18 D/C home 06/23/18 postponed-family requests [facility] fac placement restructed nedical-see soc work note. Yunier Metcalf MD Jun 24, 2018 12:46
--- NOTE | 2018-06-24 14:27 | Pulmonology Progress Note ---
Assessment/Plan Problems: (1) Colitis (2) ESRD needing dialysis Assessment/Plan doing better gtube was removed watch wbc check electrolytes HD by manager sterile processing Subjective ROS Limited/Unobtainable: No Allergies: Coded Allergies: No Known Allergies (Unverified , 06/18/18) Objective Last 24 Hour Vital Signs Date Time Temp Pulse Resp B/P (MAP) Pulse Ox O2 Delivery O2 Flow Rate FiO2 06/24/18 12:00 98.6 95 16 129/66 (87) 95 06/24/18 08:15 Room Air 06/24/18 08:00 97.7 94 16 137/76 (96) 97 06/24/18 07:50 94 16 Room Air 21 06/24/18 04:00 98.7 87 18 127/85 (99) 06/24/18 00:00 98.2 86 18 140/63 (88) 06/23/18 22:59 98.2 86 20 140/63 (88) 06/23/18 21:00 Room Air 06/23/18 20:00 97.7 96 20 123/74 (90) 06/23/18 19:53 93 16 Room Air 21 06/23/18 16:00 98.7 89 18 133/63 (86) 98 Intake and Output 06/23/18 06/24/18 19:00 07:00 Intake Total 1100 ml Output Total 1900 ml Balance -800 ml Intake Oral 1100 ml Output Urine Total 1900 ml # Voids 3 # Bowel Movements 1 General Appearance: cachetic HEENT: normocephalic, atraumatic Respiratory/Chest: chest wall non-tender, lungs clear Breasts: no masses Cardiovascular: normal peripheral pulses Abdomen: normal bowel sounds, no organomegaly Genitourinary: normal external genitalia Extremities: no clubbing Skin: no rash Current Medications Medications (Trade) Dose Ordered Sig/Victoriano Route PRN Reason Start Time Stop Time Status Last Admin Dose Admin Acetaminophen (Tylenol) 650 mg Q4H PRN ORAL Fever 06/18/18 22:00 07/18/18 21:59 06/23/18 21:15 Dextrose (Dextrose 50%) 25 ml Q30M PRN IV Hypoglycemia 06/18/18 22:00 07/18/18 21:59 Dextrose (Dextrose 50%) 50 ml Q30M PRN IV Hypoglycemia 06/18/18 22:00 07/18/18 21:59 Dextrose/ Electrolytes 1,000 ml @ 75 mls/hr [id number] IV 06/24/18 16:00 07/24/18 15:59 Diphenoxylate HCl/ Atropine (Lomotil) 2.5 mg Q6H PRN ORAL Diarrhea 06/22/18 21:15 07/22/18 21:14 06/23/18 09:00 Heparin Sodium (Porcine) (Heparin 5000 units/ml) 5,000 units EVERY 12 HOURS SUBQ 06/19/18 09:00 07/19/18 08:59 06/24/18 08:31 Ondansetron HCl (Zofran) 4 mg Q6H PRN IVP Nausea & Vomiting 06/18/18 22:00 07/18/18 21:59 06/20/18 18:17 Polyethylene Glycol/ Electrolytes (Nulytely) 4,000 ml ONCE ORAL 06/24/18 16:00 06/24/18 23:59 Temazepam (Restoril) 15 mg HSPRN PRN ORAL Insomnia 06/18/18 22:00 06/25/18 21:59 Vancomycin HCl (Firvanq) 125 mg FOUR TIMES A DAY ORAL 06/22/18 18:00 06/29/18 17:59 06/24/18 12:26 Anupama Tanner MD Jun 24, 2018 14:27
--- NOTE | 2018-06-24 15:14 | Infectious Diseases Prog Note ---
Assessment/Plan Assessment/Plan Assessment: Colitis- probable Cdiff given recent hospital admission , despite of negative toxin test -CT abd/p: Extensive diffuse colonic wall thickening and infiltration of the pericolonic fat is consistent with colitis, nonspecific as regards etiology. Trace ascites fluid, possibly related to the above. Dilatation of the appendix, probably related to the above, but the possibility of appendicitis should also be considered. Solid 5 cm left adnexal mass. Recommend ultrasound for further evaluation. Right pleural effusion. Bilateral basilar pulmonary atelectatic changes and possible consolidation -Cdiff toxin a/b EIA neg -stool cx: normal fecal daniela Afebrile Leukocytosis, SP ESRF on HD MWF via R chest permacath dysphagia s/p GT Plan: - cont empiric PO Vancomycin d# 09/07 for probable Cdiff despite neg toxin test -06/22 SP Zosyn #5 -f.u cx -Monitor CBC/CMP, temperatures -f/u stool cx -GI f/u -aspiration precautions -HD cath care -stool parasites studies -for colonoscopy am Subjective Allergies: Coded Allergies: No Known Allergies (Unverified , 06/18/18) Subjective afebrile no leukocytosis still having diarrhea for colonoscopy tomorrow Objective Vital Signs Last 24 Hour Vital Signs Date Time Temp Pulse Resp B/P (MAP) Pulse Ox O2 Delivery O2 Flow Rate FiO2 06/24/18 12:00 98.6 95 16 129/66 (87) 95 06/24/18 08:15 Room Air 06/24/18 08:00 97.7 94 16 137/76 (96) 97 06/24/18 07:50 94 16 Room Air 21 06/24/18 04:00 98.7 87 18 127/85 (99) 06/24/18 00:00 98.2 86 18 140/63 (88) 06/23/18 22:59 98.2 86 20 140/63 (88) 06/23/18 21:00 Room Air 06/23/18 20:00 97.7 96 20 123/74 (90) 06/23/18 19:53 93 16 Room Air 21 06/23/18 16:00 98.7 89 18 133/63 (86) 98 Height (Feet): 5 Height (Inches): 2.00 Weight (Pounds): 155 Objective General Appearance: WD/WN HEENT: normocephalic, atraumatic Respiratory/Chest: chest wall non-tender, lungs clear Breasts: no masses Cardiovascular: normal peripheral pulses Abdomen: normal bowel sounds, no organomegaly Genitourinary: normal external genitalia Skin: no rash Current Medications Medications (Trade) Dose Ordered Sig/Victoriano Route PRN Reason Start Time Stop Time Status Last Admin Dose Admin Acetaminophen (Tylenol) 650 mg Q4H PRN ORAL Fever 06/18/18 22:00 07/18/18 21:59 06/23/18 21:15 Dextrose (Dextrose 50%) 25 ml Q30M PRN IV Hypoglycemia 06/18/18 22:00 07/18/18 21:59 Dextrose (Dextrose 50%) 50 ml Q30M PRN IV Hypoglycemia 06/18/18 22:00 07/18/18 21:59 Dextrose/ Electrolytes 1,000 ml @ 75 mls/hr [id number] IV 06/24/18 16:00 07/24/18 15:59 Diphenoxylate HCl/ Atropine (Lomotil) 2.5 mg Q6H PRN ORAL Diarrhea 06/22/18 21:15 07/22/18 21:14 06/23/18 09:00 Heparin Sodium (Porcine) (Heparin 5000 units/ml) 5,000 units EVERY 12 HOURS SUBQ 06/19/18 09:00 07/19/18 08:59 06/24/18 08:31 Ondansetron HCl (Zofran) 4 mg Q6H PRN IVP Nausea & Vomiting 06/18/18 22:00 07/18/18 21:59 06/20/18 18:17 Polyethylene Glycol/ Electrolytes (Nulytely) 4,000 ml ONCE ORAL 06/24/18 16:00 06/24/18 23:59 Temazepam (Restoril) 15 mg HSPRN PRN ORAL Insomnia 06/18/18 22:00 06/25/18 21:59 Vancomycin HCl (Firvanq) 125 mg FOUR TIMES A DAY ORAL 06/22/18 18:00 06/29/18 17:59 06/24/18 12:26 Мария Dougherty M.D. Jun 24, 2018 15:14
[2018-06-24 16:00] VITALS: BP 117/70
[2018-06-24] MEDS ORDERED: Nulytely 4L ORAL SCH (16:00)
[2018-06-24] MEDS ORDERED: D5 1/2NS w/KCl 20mEq 1,000 ML IV SCH (16:00)
--- NOTE | 2018-06-24 16:07 | Nephrology Progress Note ---
Assessment/Plan Problem List: (1) ESRD needing dialysis (2) Colitis (3) Anemia in chronic kidney disease (CKD) Assessment Abdominal pain - Colitis ESRD Has GT tube ! but taaking PO Anemia Leukocytosis ? Cath infection Plan DC figueroa- on Renal diet HD 06/25 UA and c/s HD as needed- Jay An, now on Zosyn DC Planning? Subjective ROS Limited/Unobtainable: No Constitutional: Reports: malaise Objective Objective Last 24 Hour Vital Signs Date Time Temp Pulse Resp B/P (MAP) Pulse Ox O2 Delivery O2 Flow Rate FiO2 06/24/18 12:00 98.6 95 16 129/66 (87) 95 06/24/18 08:15 Room Air 06/24/18 08:00 97.7 94 16 137/76 (96) 97 06/24/18 07:50 94 16 Room Air 21 06/24/18 04:00 98.7 87 18 127/85 (99) 06/24/18 00:00 98.2 86 18 140/63 (88) 06/23/18 22:59 98.2 86 20 140/63 (88) 06/23/18 21:00 Room Air 06/23/18 20:00 97.7 96 20 123/74 (90) 06/23/18 19:53 93 16 Room Air 21 Intake and Output 06/23/18 06/24/18 19:00 07:00 Intake Total 1100 ml Output Total 1900 ml Balance -800 ml Intake Oral 1100 ml Output Urine Total 1900 ml # Voids 3 # Bowel Movements 1 Height (Feet): 5 Height (Inches): 2.00 Weight (Pounds): 155 General Appearance: no apparent distress Objective no change Anish Berry MD Jun 24, 2018 16:07
--- NOTE | 2018-06-25 12:41 | Discharge Summary ---
Discharge Summary Discharge Summary _ DATE OF ADMISSION: 06/18/2018 DATE OF DISCHARGE: 06/24/2018 ATTENDING MD: Dr. Benji Canas DISCHARGED BY: Dr. Anupama Tanner CONSULTANTS: Dr. Anupama Dougherty BRIEF HOSPITAL COURSE: Patient is a 57-year-old female who has medical history significant for end-stage renal disease, on hemodialysis every Friday, Friday and Friday via right chest wall permacath; dysphagia, status post PEG placement; and hypertension, who presented to the hospital due to abdominal pain for 2 days. Pain was progressively worsening with associated diarrhea. Pain was 10/10 in intensity, and nonradiating. She denied fever or chills. She had occasional chest pain associated with shortness of breath. She was recently discharged from [facility] 2 days earlier but abdominal pain worsened. She then presented to ED for further evaluation. On evaluation at ED, vital signs were stable. Blood work showed WBC of 22. Hemoglobin 9.5, hematocrit 30 creatinine 4.3, potassium 4.1. LFTs and lipase were normal. She had a CT of the abdomen and pelvis with contrast that showed extensive diffuse colonic wall thickening and infiltration of the pericolonic fat, consistent with colitis. There was a solid 5 cm left adnexal mass seen. She was given IV hydration and was started on Zosyn. She was then admitted to the medical floor for evaluation of colitis. Patient was placed on n.p.o. She was given IV hydration. Patient came in with a G-tube however said that she had been eating orally and has not used the G- tube for some time. ID was consulted. C. difficile toxin test was negative, but still patient may have probable C. difficile infection given recent hospital admission. She was given Zosyn and p.o. vancomycin. Kidney function was monitored. She was given inpatient hemodialysis. She underwent bedside swallow evaluation. Patient wants to eat/drink by mouth. For quality diarrhea but was downgraded to renal mechanical soft finely chopped diet and nectar thick liquids. Strict aspiration precaution. On 2018, NG tube was removed. She continued to have diarrhea. She was given prn Lomotil. MiraLAX and Protonix discontinued. Stool OB was positive. She refused colonoscopy. Stool culture with normal fecal daniela. Urine culture with no growth. Empiric Zosyn was discontinued. Continue with oral vancomycin. Leukocytosis resolved. She was cleared for discharge home on 06/23/2018, but family requested SNF placement. Social service was consulted. She was eventually discharged home the following day. FINAL DIAGNOSES: Abdominal pain, most likely secondary to acute colitis, probable Cdiff given recent hospital admission, despite negative toxin test End-stage renal disease on hemodialysis Anemia in chronic kidney disease Dysphagia G-tube, status post removal on 06/22/2018 Pelvic mass Hypertension DISPOSITION: Patient was discharged home. DISCHARGE MEDICATIONS: Refer to Discharge Medication List. DISCHARGE INSTRUCTIONS: Follow-up in a week. I have been assigned to complete a discharge summary on this account, I was not involved with the patient's management. Dorcas Gerber NP Jun 25, 2018 12:41
== END 2018-06-24 20:49 | disposition home or self-care (01) | DRG 248 ==
LOC: EDBD 16:15 → EMR 17:00 → 4E 20:58 → EDBD 20:58 → EDBEDREQ 21:45
PROC: 5A1D70Z Performance of Urinary Filtration, Intermittent, Less than 6 Hours Per Day (ICD-10-PCS; principal; 2018-06-22)
DX: A04.72 Enterocolitis due to Clostridium difficile, not specified as recurrent (principal); I12.0 Hypertensive chronic kidney disease with stage 5 chronic kidney disease or end stage renal disease; N18.6 End stage renal disease; Z99.2 Dependence on renal dialysis; D63.1 Anemia in chronic kidney disease; R13.10 Dysphagia, unspecified; Z43.1 Encounter for attention to gastrostomy; R19.00 Intra-abdominal and pelvic swelling, mass and lump, unspecified site
CPT/HCPCS: 36415; 74177; 80048; 80053; 80069; 80202; 81001; 82270; 82607; 82728; 82746; 83036; 83540; 83550; 83690; 83735; 83880; 84100; 84443; 84484; 85007; 85025; 85651; 86140; 86705; 86709; 86803; 87045; 87081; 87086; 87324; 87340; 94664; 96365; 96375; 99285; J2405